=== PATIENT | female | born 1985 | race Caucasian/White ===

== ENCOUNTER 2018-10-07 17:42 | Inpatient (IN) ==
[~2018-10-07 17:42] MED LIST: *HR* Propofol 200 MG/20 ML VIAL IVP ONE; Lidocaine 2% Syringe 100 MG/5 ML IV ONE
[2018-10-07] MEDS: Naloxone 0.4 MG/ML INJ IVP ONE ×2 (17:52→18:48)
[2018-10-07] MEDS ORDERED: Naloxone 0.4 MG/ML INJ ONE (17:55)
[2018-10-07] MEDS ORDERED: Isovue-370 500 ML BOTTLE IVP ONE (17:57)
[2018-10-07] MEDS ORDERED: 0.9 % Sodium Chloride 1,000 ML ONE (18:00)
--- NOTE | 2018-10-07 18:12 | Emergency Department Note ---
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 I have personally performed a face to face evaluation on this patient & I agree with the documented findings, disposition and treatment plan as described except to the extent set forth below. Patient was seen with emergency medicine resident Dr. Rashid Bird please see copy of his note for details of this encounter Briefly: 32-year-old female on Suboxone brought in from wheelchair straight back with 13 coverage trauma 14 altered mental status. Patient said she patient's actually sit down the patient at home she appeared not acting right said he worked third shift and slept most the day this at the [facility] addicts for heroin and other substances need been clean "for years" however upon questioning the patient after she admitted she was on Suboxone she did admit to using cocaine yesterday by snorting it. Was unsure if there is any other chemicals in it. Her spouse at that she has been acting oddly since yesterday. Patient c omes in tachycardic in the 1 teens to The mid 20s hypoxic to the mid 80s that is with supplemental O2. Chest was clear she does not a 48-koxc-unby tobacco history but no formal diagnosis of COPD. Patient got 2 doses of Narcan 0.4 mg nasal mist 0.4 mg IV push with little improvement of her mental status. Patient initially her chief complaint was right foot pain that she injured it a day or so ago. Per patient who while she was spontaneously wakening and her spouse denied any history of venous thromboembolic disease in the patient or the family. Providing 75 minutes critical care service for this patient. Patient getting CT extremity chest to exclude the possibility of pulmonary embolism. Carboxyhemoglobin screening labs EKG urine drug screen. We will put the patient on BiPAP to see if he can improve her oxygenation status. And a VBG. Admission anticipated, disposition pending. Pain Scale: 0 - Related Data Home Medications Medication Instructions Recorded Confirmed Aripiprazole [Abilify] 15 mg PO DAILY 02/28/18 02/28/18 Buprenorphine HCl/Naloxone HCl 1 film PO BID 02/28/18 02/28/18 [Suboxone 8 mg-2 mg Sl Film] Medroxyprogesterone Acetate 150 mg IM [id number] 02/28/18 02/28/18 [Depo-Provera] Venlafaxine XR (24 HR) [Effexor XR] 75 mg PO DAILY 02/28/18 02/28/18 Venlafaxine XR (24 HR) [Effexor XR] 150 mg PO DAILY 02/28/18 02/28/18 Previous Rx's Medication Instructions Recorded Ibuprofen [Motrin] 800 mg PO Q8HR PRN #40 tablet 02/28/18 Allergies Allergy/AdvReac Type Severity Reaction Status Date / Time Penicillins [PCN] Allergy Rash Verified 06/14/17 09:38 Past Medical History - Past Medical History Medical history: Reports: no medical history, other Surgical history: Reports: , other Psychiatric history: Reports: anxiety, bipolar, depression, PTSD 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 - Social History Smoking Status: Former smoker Smokeless Tobacco Status: No Alcohol use: Reports: none Drug use: Reports: none Physical Exam - General Limitations: no limitations General appearance: alert, lethargic, in distress Course Vital Signs Temperature 98.7 F 10/07/18 17:53 Pulse Rate 133 10/07/18 17:53 Respiratory Rate 18 10/07/18 17:53 Blood Pressure 101/81 10/07/18 17:53 O2 Sat by Pulse Oximetry 82 10/07/18 17:53 Temperature 98.7 F 10/07/18 17:53 Pulse Rate 129 10/07/18 18:01 Respiratory Rate 20 10/07/18 18:01 Blood Pressure 101/81 10/07/18 17:53 O2 Sat by Pulse Oximetry 82 10/07/18 18:01 Oxygen Delivery Oxygen Delivery Non Rebreather Mask
[2018-10-07] MEDS ORDERED: 0.9 % Sodium Chloride 1,000 ML IVC ONE ×2 (18:20→20:07)
[2018-10-07 18:21] LABS: VBG HCO3 17 mEq/L (21-27); VBG PCO2 35 mmHg (41-51); VBG PO2 49 mmHg (25-50)
[2018-10-07 18:26] LABS: Basophils # 0.1 K/mcL (0.0-0.2); Basophils % 0.3 %; Eosinophils # 0.2 K/mcL (0.0-0.6); Eosinophils % 0.9 %; Hematocrit 40.6 % (35.3-44.9); Hemoglobin 13.5 g/dL (11.5-15.4); Immature Granulocytes % 0.9 % (0-4); Lymphocytes # 2.9 K/mcL (0.6-4.6); Lymphocytes % 14.8 %; Mean Corpuscular HGB Conc 33.3 g/dL (31.6-35.5); Mean Corpuscular Hemoglobin 28.6 pg (28.0-33.3); Mean Platelet Volume 11.4 fL (9.4-12.4); Monocytes # 0.5 K/mcL (0.0-1.3); Monocytes % 2.6 %; Neutrophils # 15.5 K/mcL (1.6-8.9); Platelet Count 241 K/mcL (140-400); Red Blood Count 4.72 M/mcL (3.82-4.97); Segmented Neutrophils % 80.5 %
[2018-10-07] MEDS ORDERED: NALOXONE 4 MG Nasal Spray 2 Sprays/Box NS ONE (18:30)
[2018-10-07 18:49] LABS: BUN/Creatinine Ratio 23 (6-26); Blood Urea Nitrogen 23 mg/dL (6-20); Calcium 9.5 mg/dL (8.6-10.3); Carbon Dioxide 15 mEq/L (23-29); Chloride 103 mEq/L (98-107); Glucose 145 mg/dL (70-105); Osmolality,Calculated 284 (280-300); Potassium 3.1 mEq/L (3.5-5.1); Sodium 134 mEq/L (136-145); Troponin I 0.03 ng/mL (< 0.04); eGFR For Non-African Americans > 60 (> 60)
[2018-10-07] MEDS ORDERED: Cefepime HCl 2,000 MG in 0.9 % Sodium Chloride Mini Bag 100 ML IVPB STA (18:52)
[2018-10-07] MEDS ORDERED: Levofloxacin 750 MG/150 ML 750 MG/150 ML BAG IVPB ONE (18:52)
[2018-10-07] MEDS ORDERED: methylPREDNISolone 125 MG/2 ML VIAL IVP ONE (18:53)
[2018-10-07] MEDS ORDERED: Ipratropium/Albuterol Neb 3 ML IH ONE (18:53)
[2018-10-07 18:55] LABS: VBG HCO3 20 mEq/L (21-27); VBG PCO2 37 mmHg (41-51); VBG PH 7.34 pH Units (7.32-7.42); VBG PO2 138 mmHg (25-50)
--- NOTE | 2018-10-07 18:56 | Emergency Department Note ---
Disposition Clinical Impression: Hypoxia, Adult respiratory distress syndrome Altered mental status Qualifiers: Altered mental status type: disorientation Qualified Code(s): R41.0 - Disorientation, unspecified Disposition: Admitted As Inpatient Condition: Critical Referrals: NONE,PCP [Primary Care Provider] - General Adult HPI - General Chief complaint: ED Shortness of Breath/Dyspnea Stated complaint: R foot pain Time Seen by Provider: 10/07/18 17:56 Source: patient Limitations: no limitations - History of Present Illness Pain Scale: 0 - Related Data Home Medications Medication Instructions Recorded Confirmed Buprenorphine HCl/Naloxone HCl 1 film PO BID 02/28/18 10/07/18 [Suboxone 8 mg-2 mg Sl Film] Venlafaxine XR (24 HR) [Effexor XR] 75 mg PO DAILY 02/28/18 10/07/18 Venlafaxine XR (24 HR) [Effexor XR] 150 mg PO DAILY 02/28/18 10/07/18 Acyclovir [Zovirax] 400 mg PO BID 10/07/18 10/07/18 Aripiprazole [Abilify] 20 mg PO DAILY 10/07/18 10/07/18 Naproxen [Naprosyn] 500 mg PO Q12H PRN 10/07/18 10/07/18 Sulfamethoxazole/Trimeth DS 1 each PO BID 10/07/18 10/07/18 [Bactrim DS] Allergies Allergy/AdvReac Type Severity Reaction Status Date / Time Penicillins [PCN] Allergy Rash Verified 06/14/17 09:38 Past Medical History - Past Medical History Medical history: Reports: no medical history, other Surgical history: Reports: , other Psychiatric history: Reports: anxiety, bipolar, depression, PTSD 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 Contreras and Dr. Bird. Patient with a history of previous IV drug abuse. Reports most recent use of cocaine. Presented to the emergency department for foot pain. Patient was found to be hypoxic in the 80s. No reported shortness of breath. Placed on nonrebreather. Placed on BiPAP. CT of the chest ordered concerning for pulmonary edema and multifocal pneumonia. Blood cultures and antibiotics have been ordered. The patient is going to receive breathing treatments and steroids. Patient will continue to be monitored and admitted to the ICU. Overall patient's lactate came back at 6.3. I have her ordered further fluids. She will need a repeat lactate. She is going to the ICU for further monitoring. During my evaluation she did appear to have some altered mental status which can best be described as slowness with her responses. She does know her name. She knows who is in the room. She knows the year. She knows she is in the hospital. She is able to move all 4 extremities without any focal deficit. Her right ankle has reported tenderness but no significant pathology. Is not erythematous. Her calf is not swollen. CTA was negative for PE. Overall the patient's story leads to significant questions. She has been covered with broad-spectrum antibiotics. Blood cultures have been obtained. Patient has received duo nebs as well as steroids. The patient was admitted to the hospital service by Dr. Bird. Blood pressures have remained above 100 systolic. No need for central line at this time. Patient will need continued close monitoring. Patient was noted to have significant elevated PO2 on VBG. This does not correlate to the patient's pulse ox. Concern for our does well as possible other underlying pathology. Due to overall concern, I discussed with the ICU physician, pulmonology, Dr. Gale. Requests respiratory infectious panel but no other interventions other than close monitoring. CAT scan of the head was ordered and negative for acute pathology. Vital Signs Temperature 98.7 F 10/07/18 17:53 Pulse Rate 133 10/07/18 17:53 Respiratory Rate 18 10/07/18 17:53 Blood Pressure 101/81 10/07/18 17:53 O2 Sat by Pulse Oximetry 82 10/07/18 17:53 Temperature 98.7 F 10/07/18 17:53 Pulse Rate 111 10/07/18 19:38 Respiratory Rate 19 10/07/18 19:38 Blood Pressure 110/63 10/07/18 19:38 O2 Sat by Pulse Oximetry 94 10/07/18 19:38 Oxygen Delivery Oxygen Delivery Bipap Medical Decision Making - Lab Data Result diagrams: 10/07/18 17:55 10/07/18 17:55 Lab Results 10/07/18 10/07/1810/07/19 Range/Units 17:55 17:55 17:55 WBC 19.2 H (4.3-11.1) K/mcL RBC 4.72 (3.82-4.97) M/mcL Hgb 13.5 (11.5-15.4) g/dL Hct 40.6 (35.3-44.9) % MCV 86.0 (83.0-100.0) fL MCH 28.6 (28.0-33.3) pg MCHC 33.3 (31.6-35.5) g/dL RDW 13.0 (11.5-14.5) % Plt Count 241 (140-400) K/mcL MPV 11.4 (9.4-12.4) fL Immature Gran % 0.9 (0-4) % Seg Neutrophils % 80.5 % Lymphocytes % 14.8 % Monocytes % 2.6 % Eosinophils % 0.9 % Basophils % 0.3 % Neutrophils # 15.5 H (1.6-8.9) K/mcL Lymphocytes # 2.9 (0.6-4.6) K/mcL Monocytes # 0.5 (0.0-1.3) K/mcL Eosinophils # 0.2 (0.0-0.6) K/mcL Basophils # 0.1 (0.0-0.2) K/mcL VBG pH (7.32-7.42) pH Units VBG pCO2 (41-51) mmHg VBG pO2 (25-50) mmHg VBG HCO3 (21-27) mEq/L Carboxyhemoglobin 7 H (0-5) % Sodium 134 L (136-145) mEq/L Potassium 3.1 L (3.5-5.1) mEq/L Chloride 103 (98-107) mEq/L Carbon Dioxide 15 L (23-29) mEq/L BUN 23 H (6-20) mg/dL Creatinine 0.99 (0.60-1.20) mg/dL Est GFR ( Amer) > 60 (> 60) Est GFR (Non-Af Amer) > 60 (> 60) BUN/Creatinine Ratio 23 (6-26) Glucose 145 H (70-105) mg/dL Calculated Osmolality 284 (280-300) Lactic Acid (0.5-2.2) mmol/L Calcium 9.5 (8.6-10.3) mg/dL Troponin I 0.03 (< 0.04) ng/mL Serum , Qual (Negative) Urine Opiates Screen (Nnoroz=723) ng/mL Ur Barbiturates Screen (Hcxidw=983) ng/mL Ur Phencyclidine Scrn (Cutoff=25) ng/mL Ur Amphetamines Screen (Dqrosw=9131) ng/mL U Benzodiazepines Scrn (Lqxsww=089) ng/mL Urine Cocaine Screen (Cutoff= 300) ng/mL U Marijuana (THC) Screen (Cutoff = 50) ng/mL Ur Drug Screen Interp 10/07/18 10/07/18 10/07/18 Range/Units 17:55 18:18 18:24 WBC (4.3-11.1) K/mcL RBC (3.82-4.97) M/mcL Hgb (11.5-15.4) g/dL Hct (35.3-44.9) % MCV (83.0-100.0) fL MCH (28.0-33.3) pg MCHC (31.6-35.5) g/dL RDW (11.5-14.5) % Plt Count (140-400) K/mcL MPV (9.4-12.4) fL Immature Gran % (0-4) % Seg Neutrophils % % Lymphocytes % % Monocytes % % Eosinophils % % Basophils % % Neutrophils # (1.6-8.9) K/mcL Lymphocytes # (0.6-4.6) K/mcL Monocytes # (0.0-1.3) K/mcL Eosinophils # (0.0-0.6) K/mcL Basophils # (0.0-0.2) K/mcL VBG pH 7.30 L (7.32-7.42) pH Units VBG pCO2 35 L (41-51) mmHg VBG pO2 49 (25-50) mmHg VBG HCO3 17 L (21-27) mEq/L Carboxyhemoglobin (0-5) % Sodium (136-145) mEq/L Potassium (3.5-5.1) mEq/L Chloride (98-107) mEq/L Carbon Dioxide (23-29) mEq/L BUN (6-20) mg/dL Creatinine (0.60-1.20) mg/dL Est GFR ( Amer) (> 60) Est GFR (Non-Af Amer) (> 60) BUN/Creatinine Ratio (6-26) Glucose (70-105) mg/dL Calculated Osmolality (280-300) Lactic Acid 6.3 H* (0.5-2.2) mmol/L Calcium (8.6-10.3) mg/dL Troponin I (< 0.04) ng/mL Serum , Qual Negative (Negative) Urine Opiates Screen (Zbskug=664) ng/mL Ur Barbiturates Screen (Dbjfoe=808) ng/mL Ur Phencyclidine Scrn (Cutoff=25) ng/mL Ur Amphetamines Screen (Fiuvan=3500) ng/mL U Benzodiazepines Scrn (Audmws=099) ng/mL Urine Cocaine Screen (Cutoff= 300) ng/mL U Marijuana (THC) Screen (Cutoff = 50) ng/mL Ur Drug Screen Interp 10/07/18 10/07/18 Range/Units 18:50 18:51 WBC (4.3-11.1) K/mcL RBC (3.82-4.97) M/mcL Hgb (11.5-15.4) g/dL Hct (35.3-44.9) % MCV (83.0-100.0) fL MCH (28.0-33.3) pg MCHC (31.6-35.5) g/dL RDW (11.5-14.5) % Plt Count (140-400) K/mcL MPV (9.4-12.4) fL Immature Gran % (0-4) % Seg Neutrophils % % Lymphocytes % % Monocytes % % Eosinophils % % Basophils % % Neutrophils # (1.6-8.9) K/mcL Lymphocytes # (0.6-4.6) K/mcL Monocytes # (0.0-1.3) K/mcL Eosinophils # (0.0-0.6) K/mcL Basophils # (0.0-0.2) K/mcL VBG pH 7.34 (7.32-7.42) pH Units VBG pCO2 37 L (41-51) mmHg VBG pO2 138 H (25-50) mmHg VBG HCO3 20 L (21-27) mEq/L Carboxyhemoglobin (0-5) % Sodium (136-145) mEq/L Potassium (3.5-5.1) mEq/L Chloride (98-107) mEq/L Carbon Dioxide (23-29) mEq/L BUN (6-20) mg/dL Creatinine (0.60-1.20) mg/dL Est GFR ( Amer) (> 60) Est GFR (Non-Af Amer) (> 60) BUN/Creatinine Ratio (6-26) Glucose (70-105) mg/dL Calculated Osmolality (280-300) Lactic Acid (0.5-2.2) mmol/L Calcium (8.6-10.3) mg/dL Troponin I (< 0.04) ng/mL Serum , Qual (Negative) Urine Opiates Screen Negative (Rezzne=302) ng/mL Ur Barbiturates Screen Negative (Yoeepr=972) ng/mL Ur Phencyclidine Scrn Negative (Cutoff=25) ng/mL Ur Amphetamines Screen Negative (Gblmmu=6846) ng/mL U Benzodiazepines Scrn Negative (Zvbfkq=223) ng/mL Urine Cocaine Screen Positive H (Cutoff= 300) ng/mL U Marijuana (THC) Screen Negative (Cutoff = 50) ng/mL Ur Drug Screen Interp See Below
--- NOTE | 2018-10-07 19:03 | Emergency Department Note ---
Disposition Clinical Impression: Hypoxia, Adult respiratory distress syndrome Altered mental status Qualifiers: Altered mental status type: disorientation Qualified Code(s): R41.0 - Disorientation, unspecified Disposition: Admitted As Inpatient Condition: Critical Referrals: NONE,PCP [Primary Care Provider] - Forms: ED Satisfaction Letter Time of Disposition: 19:29 SOB HPI - General Chief Complaint: ED Shortness of Breath/Dyspnea Stated Complaint: R foot pain Time Seen by Provider: 10/07/18 17:56 Source: patient Mode of arrival: ambulatory Limitations: no limitations Nursing Notes Reviewed: Yes Vital Signs Reviewed: Yes - History of Present Illness 33 old female history of IV drug abuse has been clean for 2 years presents to the emergency department with right foot pain. In triage they noticed that she had oxygen saturation at 85% so they took her stay back to the trauma bay. Getting history from patient and family has been said that he was at work today but said he was sleeping and he knows that she was a little altered when he woke up saying that she Falling down Did Not Hit Her Head Did Not Lose Consciousness and Dozing off Almost like She Had Overdosed on the Medication. They do state that she states she has not taken any drugs other than snorting cocaine last night but is done no other drugs otherwise. Patient is currently on Suboxone has been taking her medications. She also contain her psychiatric medications which include venlafaxine and Abilify. Patient states that she has had a mild cough and not felt well for approximately a month but there has been no shortness of breath or fevers that she notes any time during this period patient does not know any pain other than in the right foot where she says she feels like she may have broken something. She is not sure when this happened or if there is any trauma to the area. There is no redness or open wounds to the area. There is no noticeable deformities. Otherwise patient has no other complaints including fevers, chills, nausea, vomiting, headache, blurry vision, neck pain, back pain, shortness of breath, chest pain, abdominal pain, changes in balance, pain with urination. Tingling going down the arms or legs or generalized weakness. - Related Data Home Medications Medication Instructions Recorded Confirmed Aripiprazole [Abilify] 15 mg PO DAILY 02/28/18 02/28/18 Buprenorphine HCl/Naloxone HCl 1 film PO BID 02/28/18 02/28/18 [Suboxone 8 mg-2 mg Sl Film] Medroxyprogesterone Acetate 150 mg IM [id number] 02/28/18 02/28/18 [Depo-Provera] Venlafaxine XR (24 HR) [Effexor XR] 75 mg PO DAILY 02/28/18 02/28/18 Venlafaxine XR (24 HR) [Effexor XR] 150 mg PO DAILY 02/28/18 02/28/18 Previous Rx's Medication Instructions Recorded Ibuprofen [Motrin] 800 mg PO Q8HR PRN #40 tablet 02/28/18 Allergies Allergy/AdvReac Type Severity Reaction Status Date / Time Penicillins [PCN] Allergy Rash Verified 06/14/17 09:38 All systems ED: reviewed and negative except as stated. Review of Systems: As Per HPI Past Medical History - Past Medical History Attestation: Yes The following information was validated with the patient. Source: patient Medical history: Reports: no medical history, other Surgical history: Reports: , other Psychiatric history: Reports: anxiety, bipolar, depression, PTSD [employer] history: Reports: non-contributory - Social History Smoking Status: Former smoker Smokeless Tobacco Status: No Alcohol use: Reports: none Drug use: Reports: none Physical Exam - General Limitations: no limitations General appearance: alert, lethargic, in distress - Head Head exam: atraumatic, normocephalic, normal inspection - Eye Eye exam: Present: normal appearance, PERRL, EOMI - ENT ENT exam: normal exam, normal oropharynx, mucous membranes moist - Neck Neck exam: Present: normal inspection, full ROM, trachea midline - Chest Chest inspection: Present: normal inspection, symmetric chest wall rise - Respiratory Respiratory exam: Present: accessory muscle use. Absent: respiratory distress, wheezes, prolonged expiratory phase - Cardiovascular Cardiovascular exam: Present: regular rate, normal rhythm, normal heart sounds - Abdominal Exam Abdominal exam: Present: soft, Non-Tender, normal bowel sounds. Absent: tenderness, distention, guarding, rebound, rigidity - Extremities Exam Extremities exam: Present: normal inspection, full ROM. Absent: tenderness, pedal edema - Expanded Lower Extremity Exam Knee exam: Present: normal inspection, full ROM Lower leg exam: Present: normal inspection, full ROM Ankle exam: Present: normal inspection, full ROM Foot/toe exam: Present: normal inspection, full ROM, tenderness (Tenderness while palpating the right foot no noticeable swelling noticeable deformities no noticeable erythema. Tenderness is located in the medial portion of the foot) Neurovascular/Tendon exam: Present: normal capillary refill. Absent: pulse deficit, motor deficit, sensory deficit, tendon deficit - Back Exam Back exam: Present: normal inspection, full ROM. Absent: tenderness - Neurological Exam Neurological exam: Present: alert, oriented X3 - Skin Skin exam: Present: warm, dry, intact, normal color Course Vital Signs Temperature 98.7 F 10/07/18 17:53 Pulse Rate 133 10/07/18 17:53 Respiratory Rate 18 10/07/18 17:53 Blood Pressure 101/81 10/07/18 17:53 O2 Sat by Pulse Oximetry 82 10/07/18 17:53 Temperature 98.7 F 10/07/18 17:53 Pulse Rate 111 10/07/18 18:55 Respiratory Rate 15 10/07/18 18:55 Blood Pressure 97/71 10/07/18 18:55 O2 Sat by Pulse Oximetry 92 10/07/18 18:55 Oxygen Delivery Oxygen Delivery Bipap Shortness of Breath/Dyspnea - MDM Narrative Medical decision making narrative: When patient presented to the emergency department she really taken back to the trauma bay in the alert team was called. Patient was 82% while on a nonrebreather breathing comfortably. While in the lungs there did not seem to be any Rales or rhonchi or wheezes. Patient did not sustain to be in distress and was alert and oriented 3 when I evaluated her. Patient did admit to using cocaine to me otherwise to not use any medications. We did give her 2 mg intranasal Narcan prior to hearing that she takes Suboxone. This did not make any difference for her. Due to patient still being hypoxic while being on nonrebreather we felt felt that pulmonary embolism was a definite concern and do the altered mental status we decided was emergent so we sent patient over to CT for an angiogram of the chest. This was done and seems to show bilateral extensive pulmonary edema with possible pneumonia does seem to fit in ARDS picture. Due to patient still being hypoxic. Did place her on BiPAP she has responded well to this is now her oxygen saturations anywhere from 92-94%. Blood pressure is been stable the entire time. Patient has not had a fever here she is mildly tachycardic. We will give patient DuoNeb's as well as Solu- Medrol. We will also start her on broad-spectrum antibiotics including cefepime, vancomycin, Levaquin. There was no pulmonary embolus seen on CT. There are mildly for abnormalities which can be fixed when patient is admitted to the floor. I feel patient needs ICU admission as patient does seem that due to the arts picture may need intubation in the near future. At this time she is protecting her airway breathing well and doing well on BiPAP I do not think she needs intubated at this point in her emergency department stay. Spoke with the hospitalist Dr. Lloyd who agreed to admit the patient to their service. Patient admitted in critical condition to the ICU. As for the foot pain there is no noticeable trauma to the area x-ray did show possible fracture this can be worked on once patient becomes less critical in her pulmonary status. CT can be ordered later for that. No further treatment or imaging needed at this time for the foot this can be addressed later in her hospital stay. Chest CTA 10/07/18 17:57 IMPRESSION: Negative for pulmonary embolus. Extensive bilateral pulmonary edema and/or superimposed pneumonia. D/ / Shabbir Oneal MD / Shabbir Oneal MD Interpreting Provider: Shabbir Oneal MD Foot X-Ray 10/07/18 18:04 IMPRESSION: No acute osseous abnormality right foot. Focal calcification is noted along the inferior margin of the right fibula with adjacent soft tissue edema possibly related to subacute avulsion fracture (? Sprain) or sequela from remote trauma. Correlate with history and physical findings. Dedicated right ankle series may be indicated. Follow-up imaging recommended if pain persists or worsens following conservative management. D/ / Yoandy Bishop / Yoandy Bishop Interpreting Provider: Yoandy Bishop - Medical Records Medical records reviewed: Yes I reviewed the patient's medical records. - Lab Data Lab results reviewed: Yes I reviewed the patient's lab results. Result diagrams: 10/07/18 17:55 10/07/18 17:55 Lab Results 10/07/18 10/07/18 10/07/18 Range/Units 17:55 17:55 17:55 WBC 19.2 H (4.3-11.1) K/mcL RBC 4.72 (3.82-4.97) M/mcL Hgb 13.5 (11.5-15.4) g/dL Hct 40.6 (35.3-44.9) % MCV 86.0 (83.0-100.0) fL MCH 28.6 (28.0-33.3) pg MCHC 33.3 (31.6-35.5) g/dL RDW 13.0 (11.5-14.5) % Plt Count 241 (140-400) K/mcL MPV 11.4 (9.4-12.4) fL Immature Gran % 0.9 (0-4) % Seg Neutrophils % 80.5 % Lymphocytes % 14.8 % Monocytes % 2.6 % Eosinophils % 0.9 % Basophils % 0.3 % Neutrophils # 15.5 H (1.6-8.9) K/mcL Lymphocytes # 2.9 (0.6-4.6) K/mcL Monocytes # 0.5 (0.0-1.3) K/mcL Eosinophils # 0.2 (0.0-0.6) K/mcL Basophils # 0.1 (0.0-0.2) K/mcL VBG pH (7.32-7.42) pH Units VBG pCO2 (41-51) mmHg VBG pO2 (25-50) mmHg VBG HCO3 (21-27) mEq/L Carboxyhemoglobin 7 H (0-5) % Sodium 134 L (136-145) mEq/L Potassium 3.1 L (3.5-5.1) mEq/L Chloride 103 (98-107) mEq/L Carbon Dioxide 15 L (23-29) mEq/L BUN 23 H (6-20) mg/dL Creatinine 0.99 (0.60-1.20) mg/dL Est GFR ( Amer) > 60 (> 60) Est GFR (Non-Af Amer) > 60 (> 60) BUN/Creatinine Ratio 23 (6-26) Glucose 145 H (70-105) mg/dL Calculated Osmolality 284 (280-300) Calcium 9.5 (8.6-10.3) mg/dL Troponin I 0.03 (< 0.04) ng/mL Serum , Qual (Negative) Urine Opiates Screen (Bckoqh=974) ng/mL Ur Barbiturates Screen (Zihdty=180) ng/mL Ur Phencyclidine Scrn (Cutoff=25) ng/mL Ur Amphetamines Screen (Cnyyjj=0359) ng/mL U Benzodiazepines Scrn (Fyvrro=039) ng/mL Urine Cocaine Screen (Cutoff= 300) ng/mL U Marijuana (THC) Screen (Cutoff = 50) ng/mL Ur Drug Screen Interp 10/07/18 10/07/18 10/07/18 Range/Units 18:18 18:24 18:50 WBC (4.3-11.1) K/mcL RBC (3.82-4.97) M/mcL Hgb (11.5-15.4) g/dL Hct (35.3-44.9) % MCV (83.0-100.0) fL MCH (28.0-33.3) pg MCHC (31.6-35.5) g/dL RDW (11.5-14.5) % Plt Count (140-400) K/mcL MPV (9.4-12.4) fL Immature Gran % (0-4) % Seg Neutrophils % % Lymphocytes % % Monocytes % % Eosinophils % % Basophils % % Neutrophils # (1.6-8.9) K/mcL Lymphocytes # (0.6-4.6) K/mcL Monocytes # (0.0-1.3) K/mcL Eosinophils # (0.0-0.6) K/mcL Basophils # (0.0-0.2) K/mcL VBG pH 7.30 L (7.32-7.42) pH Units VBG pCO2 35 L (41-51) mmHg VBG pO2 49 (25-50) mmHg VBG HCO3 17 L (21-27) mEq/L Carboxyhemoglobin (0-5) % Sodium (136-145) mEq/L Potassium (3.5-5.1) mEq/L Chloride (98-107) mEq/L Carbon Dioxide (23-29) mEq/L BUN (6-20) mg/dL Creatinine (0.60-1.20) mg/dL Est GFR ( Amer) (> 60) Est GFR (Non-Af Amer) (> 60) BUN/Creatinine Ratio (6-26) Glucose (70-105) mg/dL Calculated Osmolality (280-300) Calcium (8.6-10.3) mg/dL Troponin I (< 0.04) ng/mL Serum , Qual Negative (Negative) Urine Opiates Screen Negative (Nsucie=817) ng/mL Ur Barbiturates Screen Negative (Lfildx=474) ng/mL Ur Phencyclidine Scrn Negative (Cutoff=25) ng/mL Ur Amphetamines Screen Negative (Tsoptn=2827) ng/mL U Benzodiazepines Scrn Negative (Umkttl=254) ng/mL Urine Cocaine Screen Positive H (Cutoff= 300) ng/mL U Marijuana (THC) Screen Negative (Cutoff = 50) ng/mL Ur Drug Screen Interp See Below 10/07/18 Range/Units 18:51 WBC (4.3-11.1) K/mcL RBC (3.82-4.97) M/mcL Hgb (11.5-15.4) g/dL Hct (35.3-44.9) % MCV (83.0-100.0) fL MCH (28.0-33.3) pg MCHC (31.6-35.5) g/dL RDW (11.5-14.5) % Plt Count (140-400) K/mcL MPV (9.4-12.4) fL Immature Gran % (0-4) % Seg Neutrophils % % Lymphocytes % % Monocytes % % Eosinophils % % Basophils % % Neutrophils # (1.6-8.9) K/mcL Lymphocytes # (0.6-4.6) K/mcL Monocytes # (0.0-1.3) K/mcL Eosinophils # (0.0-0.6) K/mcL Basophils # (0.0-0.2) K/mcL VBG pH 7.34 (7.32-7.42) pH Units VBG pCO2 37 L (41-51) mmHg VBG pO2 138 H (25-50) mmHg VBG HCO3 20 L (21-27) mEq/L Carboxyhemoglobin (0-5) % Sodium (136-145) mEq/L Potassium (3.5-5.1) mEq/L Chloride (98-107) mEq/L Carbon Dioxide (23-29) mEq/L BUN (6-20) mg/dL Creatinine (0.60-1.20) mg/dL Est GFR ( Amer) (> 60) Est GFR (Non-Af Amer) (> 60) BUN/Creatinine Ratio (6-26) Glucose (70-105) mg/dL Calculated Osmolality (280-300) Calcium (8.6-10.3) mg/dL Troponin I (< 0.04) ng/mL Serum , Qual (Negative) Urine Opiates Screen (Qxusvr=252) ng/mL Ur Barbiturates Screen (Jcxztm=180) ng/mL Ur Phencyclidine Scrn (Cutoff=25) ng/mL Ur Amphetamines Screen (Uawhwf=2551) ng/mL U Benzodiazepines Scrn (Hqnoxb=553) ng/mL Urine Cocaine Screen (Cutoff= 300) ng/mL U Marijuana (THC) Screen (Cutoff = 50) ng/mL Ur Drug Screen Interp - Radiology Data Radiology results reviewed: Yes I reviewed the patient's radiology results. - EKG Data EKG attestation: Yes I reviewed and interpreted this EKG. EKG results narrative: EKG done at 1801 review myself and the attending shows sinus tachycardia rate of 128, NH 147, QRS 69, QTC 454. There is no acute ST changes no acute T-wave changes no other signs of ischemia perhypertrophy, heart and, heart block. No WPW/Brugada/HOCM. No old EKG to compare with.
[2018-10-07 19:14] LABS: Amphetamine Screen,Urine Negative ng/mL (Cutoff=1000); Barbiturate Screen,Urine Negative ng/mL (Cutoff=200); Benzodiazepines Screen,Urine Negative ng/mL (Cutoff=200); Cannabinoid Screen,Urine Negative ng/mL (Cutoff = 50); Cocaine Screen,Urine Positive ng/mL (Cutoff= 300); Opiate Screen,Urine Negative ng/mL (Cutoff=300); Phencyclidine Screen,Urine Negative ng/mL (Cutoff=25)
--- NOTE | 2018-10-07 19:42 | Internal Med History&Physical ---
<Rajwinder Fuentes N - Last Filed: 10/07/18 22:58> Date of Encounter: 10/07/18 Time of Encounter: 19:42 Internal Medicine - H&P: HPI Chief complaint: Shortness of breath Admitted From: Emergency Dept History of present illness: Ms. Swanson is a 33 year old female with a history of anxiety, bipolar disorder, PTSD, depression, IV drug abuse, and hepatitis C. She presented to the ED this evening due to right ankle/foot pain; however, she was found to have a pulse oximetry of 85% in triage, and was immediately brought back to the trauma bay. She was administered 2 mg intranasal Narcan due to being on Suboxone therapy; however, this did not appear to improve her respiratory status. Patient did admit to snorting cocaine last night, and also admits to snorting Lyrica intermittently. CTA of the chest was negative for pulmonary embolus, though extensive bilateral pulmonary edema and/or superimposed pneumonia was noted. Patient was also noted to have an elevated white blood cell count at 19.2. She was started on BiPAP in the ED, with improvement in oxygen saturation. She was started on broad-spectrum antibiotic therapy with cefepime, Levaquin, and vancomycin and admitted to the ICU for management of hypoxia/adult respiratory d istress syndrome. Patient was seen and evaluated the bedside both while in the ED and immediately after arrival to the ICU. She reports no recent illnesses, or any sick contacts. 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 She denies any fevers, chills, cough, or sputum production. She denies any recent travel or exposure to new environments. She does not have pets, including birds, in the home. She does admit to "snorting" a line of cocaine while at work last night. S he also admits to occasional recreational use of Lyrica, which she has taken both orally and intranasally; however, saw reports that she has been inhaling Lyrica at least once per day for the last couple of weeks. She denies any other drug use, and states that she takes all of her medications as prescribed. She is currently a 1PPD smoker, and denies any alcohol use. Past Med Surg Social Fam HX - Past Medical History Medical history: no medical history, other Additional medical history: Hepatitis C, HX opiate abuse Psychiatric history: anxiety, bipolar, depression, PTSD - Past Surgical History Surgical History: , other Additional surgical history: tubal - Social History Smoking Status: Former smoker Smokeless Tobacco Status: No Alcohol use: none Drug use: none Internal Medicine - H&P: Meds Buprenorphine HCl/Naloxone HCl [Suboxone 8 mg-2 mg Sl Film] 1 film PO BID 02/28/18 [History] Venlafaxine XR (24 HR) [Effexor XR] 75 mg PO DAILY 02/28/18 [History] Venlafaxine XR (24 HR) [Effexor XR] 150 mg PO DAILY 02/28/18 [History] Acyclovir [Zovirax] 400 mg PO BID 10/07/18 [History] Aripiprazole [Abilify] 20 mg PO DAILY 10/07/18 [History] Naproxen [Naprosyn] 500 mg PO Q12H PRN 10/07/18 [History] Sulfamethoxazole/Trimeth DS [Bactrim DS] 1 each PO BID 10/07/18 [History] Allergy/AdvReac Type Severity Reaction Status Date / Time Penicillins [PCN] Allergy Rash Verified 06/14/17 09:38 All Systems PM: A 10-system review of systems was performed and is negative for pertinent find ings except as documented above in the HPI. - Constitutional Constitutional: no chills, no fever(s) - Cardiovascular Cardiovascular ROS IM: chest pain, no diaphoresis, no dyspnea, no lightheadedness, no palpitations, no syncope - Respiratory Respiratory: dyspnea, no cough, no wheezing, no chest congestion, no excessive phlegm production, no pain with cough - Gastrointestinal Gastrointestinal: no abdominal pain, no diarrhea, no hematemesis, no hematochezia, no melena, no nausea, no vomiting - Neurological Neurological ROS: confusion, weakness, other (somnolence) - Constitutional Vitals: Temp Pulse Resp BP Pulse Ox 98.7 F 111 19 110/63 94 10/07/18 17:53 10/07/18 19:38 10/07/18 19:38 10/07/18 19:38 10/07/18 19:38 Exam: GENERAL: Well-developed well-nourished adult female in no acute distress. HEENT: Atraumatic and normocephalic. BiPAP mask in place. CARDIOVASCULAR: Regular rate and rhythm. S1 and S2 present. No murmurs, gallops, or rubs. RESPIRATORY: Clear to auscultation bilaterally. Chest rises and falls symmetrically with respiration. No accessory muscle use noted. GASTROINTESTINAL: Abdomen is soft, nontender, nondistended. Bowel sounds present 4 quadrants. EXTREMITIES: No clubbing, cyanosis, or edema present. Patient reports tenderness to palpation near right ankle. SKIN: Warm, dry, and intact. NEUROLOGIC: Alert and oriented x3. Patient is cooperative with exam and answers questions appropriately. No apparent focal deficits. PSYCHIATRIC: Mood and affect appear appropriate. Internal Med - H&P Results - Labs CBC & Chem 7: 10/07/18 17:55 10/07/18 17:55 Labs: Short CBC 10/07/18 Range/Units 17:55 WBC 19.2 H (4.3-11.1) K/mcL Hgb 13.5 (11.5-15.4) g/dL Hct 40.6 (35.3-44.9) % Plt Count 241 (140-400) K/mcL Neutrophils # 15.5 H (1.6-8.9) K/mcL BMP 10/07/18 17:55 Sodium 134 L Potassium 3.1 L Chloride 103 Carbon Dioxide 15 L BUN 23 H Creatinine 0.99 Glucose 145 H Calcium 9.5 Cardiac Enzymes 10/07/18 Range/Units 17:55 Troponin I 0.03 (< 0.04) ng/mL - ABG Interpretation ABG results: 10/07/18 10/07/18 18:18 18:51 VBG pH 7.30 L 7.34 VBG pCO2 35 L 37 L VBG pO2 49 138 H VBG HCO3 17 L 20 L - Impressions ITS Impressions Chest CTA 10/07/18 17:57 IMPRESSION: Negative for pulmonary embolus. Extensive bilateral pulmonary edema and/or superimposed pneumonia. D/ / Shabbir Oneal MD / Shabbir Oneal MD Interpreting Provider: Shabbir Oneal MD Foot X-Ray 10/07/18 18:04 IMPRESSION: No acute osseous abnormality right foot. Focal calcification is noted along the inferior margin of the right fibula with adjacent soft tissue edema possibly related to subacute avulsion fracture (? Sprain) or sequela from remote trauma. Correlate with history and physical findings. Dedicated right ankle series may be indicated. Follow-up imaging recommended if pain persists or worsens following conservative management. D/ / Yoandy Bishop / Yoandy Bishop Interpreting Provider: Yoandy Bishop - Assessment and Plan (1) Adult respiratory distress syndrome Current Visit: Yes Status: Acute Assessment and plan: Unclear etiology, but concern for chemical pneumonitis secondary to frequent inhalation of recreational drugs. Additionally, high concern for concomitant bilateral pneumonia based on abnormal CTA findings. - Continue BiPAP therapy with adjustments to maintain appropriate oxygen satu ration. Anticipate intubation if patient begins to desaturate or show signs of distress. - Continue broad-spectrum antibiotic therapy with vancomycin, cefepime, and Levaquin. Anticipate deescalation of antibiotics pending culture results. - Respiratory infectious panel, urine legionella/strep pneumo antigens, and MRSA nasal swab pending. - Will obtain CXR in AM to compare with initial CT. (2) Bilateral pneumonia Current Visit: Yes Status: Acute Assessment and plan: Uncertain microbiology. CTA of the chest demonstrated extensive groundglass opacification throughout each lung, as well as enlarged 2.5 cm right hilar lymph node and 2 cm azygos esophageal recess noted, with concern for extensive bilateral pulmonary edema and/or superimposed pneumonia. - Contine broad-spectrum antibiotic therapy as initiated in the ED with cefepime, levaquin, and vancomycin. - Urine antigens, respiratory infectious panel, and sputum culture pending. - Further plan as above. Qualifiers: Pneumonia type: due to unspecified organism Lung location: unspecified part of lung Qualified Code(s): J18.9 - Pneumonia, unspecified organism (3) Current recreational drug use Current Visit: Yes Status: Acute Assessment and plan: UDS positive for cocaine, which patient admits to using last night. She also reports a history of heroin abuse, for which she takes Suboxone 8/2mg BID, and recreational use of Lyrica. - 2mg Narcan administered in ED. - Hold Suboxone at this time due to acute respiratory problems; anticipate restarting that medication over the next few days. (4) Tobacco abuse Current Visit: Yes Status: Chronic (5) DVT prophylaxis Current Visit: Yes Status: Acute Assessment and plan: - Heparin 5000units SQ Q8H. (6) Severe sepsis Current Visit: Yes Status: Acute Assessment and plan: Suspect secondary to pneumonia. Met sepsis criteria at the time of admission with tachycardia with HR 133, WBC 9.2, lactic acid 6.3, and suspected pneumonia. - Repeat and trend lactic acid Q6H. - Continue broad-spectrum IV antibiotics with cefepime, levaquin, and vancomycin. - Nasal MRSA swab and urine antigens pending. Respiratory infectious panel and blood cultures pending. - Urinalysis with reflex culture pending. - Continue IVF hydration with 0.9%NaCl at 200mL/hour. - Repeat and trend CBC with AM laboratory studies. - Time Spent With Patient Total time spent is greater than 50% in coordination of care (as documented) at patient's floor/unit and/or counseling patient: <Randee Barros - Last Filed: 10/08/18 06:38> Date of Encounter: 10/07/18 Internal Medicine - H&P: HPI History of present illness: Ms. Swanson is a 33 year old female All Systems PM: A 10-system review of systems was performed and is negative for pertinent fin dings except as documented above in the HPI. - Constitutional Vitals: Temp Pulse Resp BP Pulse Ox 97.9 F 79 20 92/67 97 10/08/18 04:00 10/08/18 06:00 10/08/18 06:00 10/08/18 06:00 10/08/18 06:00 Internal Med - H&P Results - Labs CBC & Chem 7: 10/08/18 03:27 10/08/18 03:27 Labs: Short CBC 10/07/18 10/08/18 Range/Units 17:55 03:27 WBC 19.2 H 9.6 (4.3-11.1) K/mcL Hgb 13.5 11.6 D (11.5-15.4) g/dL Hct 40.6 35.4 (35.3-44.9) % Plt Count 241 153 (140-400) K/mcL Neutrophils # 15.5 H 8.6 (1.6-8.9) K/mcL BMP 10/07/18 10/08/18 17:55 03:27 Sodium 134 L 135 L Potassium 3.1 L 4.8 D Chloride 103 111 H Carbon Dioxide 15 L 21 L BUN 23 H 16 Creatinine 0.99 0.62 Glucose 145 H 144 H Calcium 9.5 8.2 L Cardiac Enzymes 10/07/18 Range/Units 17:55 Troponin I 0.03 (< 0.04) ng/mL Liver Function 10/07/18 Range/Units 21:34 Total Bilirubin 0.3 (0.3-1.0) mg/dL Direct Bilirubin 0.1 (0.0-0.2) mg/dL AST 71 H (13-39) Units/L ALT 23 (7-52) Units/L Alkaline Phosphatase 119 H (34-104) Units/L Albumin 3.1 L (3.5-5.7) g/dL Urine 10/07/18 Range/Units 22:26 Urine Color Yellow (Yellow) Urine Clarity Clear (Clear) Urine pH 6.0 (5.0-8.0) pH Units Ur Specific [place] > 1.030 H (1.010-1.025) Urine Protein Trace (Neg-Trace) mg/dL Urine Glucose (UA) Normal (Normal) mg/dL - ABG Interpretation ABG results: 10/07/18 10/07/18 10/07/18 18:18 18:51 21:03 ABG pH 7.36 ABG pCO2 37 ABG pO2 83 L ABG HCO3 21 ABG Total CO2 22 ABG O2 Saturation 96 ABG Base Excess -4 L VBG pH 7.30 L 7.34 VBG pCO2 35 L 37 L VBG pO2 49 138 H VBG HCO3 17 L 20 L 10/08/18 04:33 ABG pH 7.29 L ABG pCO2 43 ABG pO2 92 ABG HCO3 21 ABG Total CO2 22 ABG O2 Saturation 96 ABG Base Excess -6 L VBG pH VBG pCO2 VBG pO2 VBG HCO3 - Impressions ITS Impressions Chest CTA 10/07/18 17:57 IMPRESSION: Negative for pulmonary embolus. Extensive bilateral pulmonary edema and/or superimposed pneumonia. D/ / Shabbir Oneal MD / Shabbir Oneal MD Interpreting Provider: Shabbir Oneal MD Foot X-Ray 10/07/18 18:04 IMPRESSION: No acute osseous abnormality right foot. Focal calcification is noted along the inferior margin of the right fibula with adjacent soft tissue edema possibly related to subacute avulsion fracture (? Sprain) or sequela from remote trauma. Correlate with history and physical findings. Dedicated right ankle series may be indicated. Follow-up imaging recommended if pain persists or worsens following conservative management. D/ / Yoandy Bishop / Yoandy Bishop Interpreting Provider: Yoandy Bishop Head CT 10/07/18 19:35 IMPRESSION: No acute intracranial abnormality. D/ / Shabbir Oneal MD / Shabbir Oneal MD Interpreting Provider: Shabbir Oneal MD Ankle X-Ray 10/08/18 19:25 IMPRESSION: No acute abnormality of the ankle. D/ / Shabbir Oneal MD / Shabbir Oneal MD Interpreting Provider: Shabbir Oneal MD - Assessment and Plan (1) Adult respiratory distress syndrome Current Visit: Yes Status: Acute (2) Tobacco abuse Current Visit: Yes Status: Chronic (3) Bilateral pneumonia Current Visit: Yes Status: Acute Qualifiers: Pneumonia type: due to unspecified organism Lung location: unspecified part of lung Qualified Code(s): J18.9 - Pneumonia, unspecified organism (4) Current recreational drug use Current Visit: Yes Status: Acute (5) DVT prophylaxis Current Visit: Yes Status: Acute (6) Severe sepsis Current Visit: Yes Status: Acute - Time Spent With Patient Total time spent is greater than 50% in coordination of care (as documented) at patient's floor/unit and/or counseling patient: - Attending Attestation I performed a history and physical examination of the patient and discussed her management with the resident. I reviewed the residents note and agree with the assessment and plan. Patient is 33 y/o female with a PMH of drug abuse who presented to the ED with c/o right foot pain. Patient was found to be hypoxic in the 80s. No reported shortness of breath. Placed on nonrebreather without improvement and transitioned to BiPAP. CT of the chest demonstrated ground glass opacities from the apex to the bases bilaterally. Patient subsequently endorsed recent coacaine use and snorting lyrica. Suspect chemical pneumonitis. ABG: pH 7.36, PCO2 37, PO2 83, HCO2 21 on 80% FIO2. Recieved broad spectrum Abx as well as steroids. Patient mentating well. Not in respiratory distress. Case discussed with Dr. Nelson who will follow in the morning. 45 minutes of critical care time spent in the management of this patient.
[2018-10-07] MEDS ORDERED: Naloxone 0.4 MG/ML INJ IVP PRN (19:49)
[2018-10-07 21:07] LABS: ABG Base Excess -4 mEq/L (-2 to 3); ABG HCO3 21 mEq/L (21-27); ABG Oxygen Saturation 96 % (95-98); ABG PCO2 37 mmHg (35-45); ABG PH 7.36 pH Units (7.32-7.45); ABG PO2 83 mmHg (85-104); ABG TCO2 22 mEq/L (20-26); Blood Gas PEEP 8 cm H2O; Blood Gas Respiration Rate 10
[2018-10-07] MEDS: 0.9 % Sodium Chloride 1,000 ML IVC SCH (21:51)
[2018-10-07 22:03] LABS: Albumin 3.1 g/dL (3.5-5.7); Bilirubin,Direct 0.1 mg/dL (0.0-0.2); Bilirubin,Indirect 0.2 mg/dL (0.0-1.2); Bilirubin,Total 0.3 mg/dL (0.3-1.0); Globulin 3.1 g/dL (2.4-3.5); Magnesium 2.1 mg/dL (1.6-2.6); Total Protein 6.2 g/dL (6.4-8.9)
[2018-10-07 22:54] LABS: Bilirubin,Urine Negative (Negative); Blood,Urine Negative (Negative); Clarity,Urine Clear (Clear); Color,Urine Yellow (Yellow); Glucose,Urine (UA) Normal (Normal); Ketones,Urine Trace mg/dL (Negative); Leukocyte Esterase,Urine Negative (Negative); Nitrite,Urine Negative (Negative); Protein,Urine Trace mg/dL (Neg-Trace); Specific Gravity,Urine > 1.030 (1.010-1.025); Urobilinogen,Urine Normal (Normal)
[2018-10-07 23:41] LABS: Adenovirus Not Detected (Not Detect); Bordetella Pertussis Not Detected (Not Detect); Chlamydophila pneumoniae Not Detected (Not Detect); Coronavirus 229E Not Detected (Not Detect); Coronavirus HKU1 Not Detected (Not Detect); Coronavirus NL63 Not Detected (Not Detect); Coronavirus OC43 Not Detected (Not Detect); Human Metapneumovirus Not Detected (Not Detect); Human Rhinovirus/Enterovirus Not Detected (Not Detect); Influenza A Subtype 2009 H1 Not Detected (Not Detect); Influenza A Untypeable Not Detected (Not Detect); Influenza B Not Detected (Not Detect); Mycoplasma pneumoniae Not Detected (Not Detect); Parainfluenza Virus 1 Not Detected (Not Detect); Parainfluenza Virus 2 Not Detected (Not Detect); Parainfluenza Virus 3 Not Detected (Not Detect); Parainfluenza Virus 4 Not Detected (Not Detect); Respiratory Syncytial Virus Not Detected (Not Detect)
[2018-10-08] MEDS: *HR* Heparin 5,000 UNIT/ML VIAL SQ SCH ×4 (00:30→21:24)
[2018-10-08] MEDS: 0.9 % Sodium Chloride 1,000 ML IVC SCH ×2 (03:00→08:01)
[2018-10-08 03:51] LABS: Basophils % 0.1 %; Eosinophils % 0.1 %; Hematocrit 35.4 % (35.3-44.9); Immature Granulocytes % 0.7 % (0-4); Lymphocytes # 0.8 K/mcL (0.6-4.6); Lymphocytes % 8.5 %; Mean Corpuscular HGB Conc 32.8 g/dL (31.6-35.5); Mean Corpuscular Hemoglobin 28.6 pg (28.0-33.3); Mean Corpuscular Volume 87.2 fL (83.0-100.0); Mean Platelet Volume 11.5 fL (9.4-12.4); Monocytes # 0.1 K/mcL (0.0-1.3); Monocytes % 1.3 %; Neutrophils # 8.6 K/mcL (1.6-8.9); Platelet Count 153 K/mcL (140-400); Red Blood Count 4.06 M/mcL (3.82-4.97); Red Cell Distribution Width 13.1 % (11.5-14.5); Segmented Neutrophils % 89.3 %
[2018-10-08 03:52] LABS: Hemoglobin 11.6 g/dL (11.5-15.4)
[2018-10-08 04:08] LABS: BUN/Creatinine Ratio 26 (6-26); Blood Urea Nitrogen 16 mg/dL (6-20); Calcium 8.2 mg/dL (8.6-10.3); Carbon Dioxide 21 mEq/L (23-29); Chloride 111 mEq/L (98-107); Glucose 144 mg/dL (70-105); Osmolality,Calculated 284 (280-300); Potassium 4.8 mEq/L (3.5-5.1); Sodium 135 mEq/L (136-145); eGFR For Non-African Americans > 60 (> 60)
[2018-10-08 04:37] LABS: ABG Base Excess -6 mEq/L (-2 to 3); ABG HCO3 21 mEq/L (21-27); ABG Oxygen Saturation 96 % (95-98); ABG PCO2 43 mmHg (35-45); ABG PH 7.29 pH Units (7.32-7.45); ABG PO2 92 mmHg (85-104); ABG TCO2 22 mEq/L (20-26); Blood Gas PEEP 8 cm H2O
[2018-10-08] MEDS ORDERED: MethylPREDNISolone 40 MG/ML VIAL IVP SCH (06:00)
[2018-10-08 06:17] LABS: VBG Ionized Calcium 1.08 mmol/L (1.15-1.35)
--- NOTE | 2018-10-08 06:34 | Pulmonology Consult Note ---
<Miles Brian S - Last Filed: 10/08/18 10:55> Date of Encounter: 10/08/18 Time of Encounter: 09:18 Assessment and Plan (1) Acute respiratory failure with hypoxia Current Visit: Yes Status: Acute Pt presented with oxygen saturation in the 80's, had to be put on BiPAP - anytime BiPAP is removed, O2 sat drops to low 80's, high 70's - at this time, she continues to guard her airway and control secretions CT scan from admission showed bilateral pulmonary edema +/- superimposed pneumonia CXR this morning showed no significant changes Differential includes - eosinophilic pneumonia, if acute will not have peripheral eosinophilia - pneumonitis secondary to recreational inhalation drug use - infectious CAP pneumonia - pulmonary manifestations of vasculitis, although pt denies hemoptysis - cardiogenic pulmonary edema - ARDS as defined by [place] criteria - alveolar hemorrhage Bronchoscopy performed at bedside, procedure aborted after ~4min due to hypoxia UDS (+) for cocaine, serology (-), MRSA nasal swab negative - lactate 6.3 ---> 0.9 Plan: - ECHO report pending - urgent bronchoscopy with BAL this morning at ICU bedside will check ESR, CRP cryoglobulin rheumatoid factor, ODALYS, anti-CCP IgG - blood cx pending - sputum cx pending - p ANCA, c ANCA levels sent - d/c IVF - ECHO pending- solumedrol 60mg QID - BiPAP continuously - keep NPO (2) Bilateral pneumonia Current Visit: Yes Status: Acute See as above. Qualifiers: Pneumonia type: due to unspecified organism Lung location: unspecified part of lung Qualified Code(s): J18.9 - Pneumonia, unspecified organism (3) Cocaine use Current Visit: Yes Status: Acute UDS (+) for cocaine use. Pt only inhales, denies smoking. (4) Tobacco abuse Current Visit: Yes Status: Chronic 1ppd smoker. Encourage cessation. (5) Current recreational drug use Current Visit: Yes Status: Acute Admits to inhalational lyrica and cocaine use. (6) DVT prophylaxis Current Visit: Yes Status: Acute sq heparin (7) Obesity Current Visit: No Status: Chronic BMI 35. Chronic issue. Qualifiers: Obesity type: due to excess calories Obesity classification: adult class 2 (BMI 35 - 39.9) Serious obesity comorbidity presence: unspecified whether serious comorbidity present Body mass index: BMI 35.0-35.9 Qualified Code(s): E66.09 - Other obesity due to excess calories; Z68.35 - Body mass index (BMI) 35.0-35.9, adult (8) Hepatitis C Current Visit: No Status: Chronic Chronic. Likely 2/2 IVDU. No hepatitis panel on record. Qualifiers: Viral hepatitis chronicity: unspecified Hepatic coma status: without hepatic coma Qualified Code(s): B19.20 - Unspecified viral hepatitis C without hepatic coma (9) Anxiety Current Visit: No Status: Chronic Continue home meds. (10) Bipolar depression Current Visit: No Status: Chronic Continue home meds. (11) Ankle pain Current Visit: Yes Status: Acute Initial complaint was ankle pain. XR foot and ankle negative for acute fx. Qualifiers: Chronicity: acute Laterality: unspecified laterality Qualified Code(s): M25.579 - Pain in unspecified ankle and joints of unspecified foot History of Present Illness Consult date: 10/08/18 Requesting physician: Randee Barros Reason for consult: other (ARDS) Chief complaint: my ankle hurts History of present illness: Mrs Swanson is a 33yo female with PMH of PTSD, anxiety, IVDU, hepatitis C, and polysubstance abuse. She presented to the ER on 10/07/18 for inital foot and ankle pain. She states that she had right ankle and foot pain but then was found to have an O2 saturation of 85%. Pt admitted to myself and attending that she has a hx of polysubstance abuse and snorted cocaine and lyrica. While in the ER the patient was sent for CTA of the chest which was negative for PE. CT chest showed extensive bilateral pulmonary edema +/- superimposed pneumonia. According to the ER documents, the pt told ER physician that she did have some confusion and was drifting off at work. She is also currently on suboxone. She reports no recent travel or sick contacts. Denies animals in the house such as rabbits or rodents. 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 She smokes 1ppd of cigarettes a day. She denies any current IVDU and states she hasn't shot up in quite some time. Past Med Surg Social Fam HX - Past Medical History Medical history: no medical history, other Additional medical history: Hepatitis C, HX opiate abuse Psychiatric history: anxiety, bipolar, depression, PTSD - Past Surgical History Surgical History: , other Additional surgical history: tubal - Social History Smoking Status: Former smoker Smokeless Tobacco Status: No Alcohol use: none Drug use: none Medications and Allergies Buprenorphine HCl/Naloxone HCl [Suboxone 8 mg-2 mg Sl Film] 1 film PO BID 02/28/18 [History] Venlafaxine XR (24 HR) [Effexor XR] 75 mg PO DAILY 02/28/18 [History] Venlafaxine XR (24 HR) [Effexor XR] 150 mg PO DAILY 02/28/18 [History] Acyclovir [Zovirax] 400 mg PO BID 10/07/18 [History] Aripiprazole [Abilify] 20 mg PO DAILY 10/07/18 [History] Naproxen [Naprosyn] 500 mg PO Q12H PRN 10/07/18 [History] Sulfamethoxazole/Trimeth DS [Bactrim DS] 1 each PO BID 10/07/18 [History] Allergy/AdvReac Type Severity Reaction Status Date / Time Penicillins [PCN] Allergy Rash Verified 06/14/17 09:38 All Systems: The remainder of the systems were reviewed and are negative - Constitutional Constitutional: no chills, no fever(s) - EENT Eyes: no loss of vision - Cardiovascular Cardiovascular: dyspnea, dyspnea on exertion, no chest pain, no chest pain at rest - Respiratory Respiratory: cough, dyspnea, dyspnea on exertion, no hemoptysis - Gastrointestinal Gastrointestinal: no abdominal pain, no diarrhea, no nausea, no vomiting - Genitourinary Genitourinary: no urinary frequency - Musculoskeletal Musculoskeletal: weakness - Neurological Neurological: weakness, no numbness, no tingling - Psychiatric Psychiatric: anxiety, depression - Endocrine Endocrine: fatigue - Hematologic/Lymphatic Hematologic/Lymphatic: no easy bleeding, no easy bruising Physical Examination Vital Signs: Vital Signs, Last 4 Hours Temp Pulse Resp BP Pulse Ox 10/08/18 06:00 79 20 92/67 97 10/08/18 05:00 89 19 103/68 97 10/08/18 04:24 22 98/68 95 10/08/18 04:00 97.9 F 78 18 98/68 94 10/08/18 03:00 86 19 95/68 95 General appearance: lethargic, appears uncomfortable Eyes: nonicteric ENT: oropharynx dry Effort: mildly labored, other (pt continues to guard airway and control secretions, although she desaturates quickly when off BiPAP) Auscultation: bilateral: diminished breath sounds, other (coarse breath sounds bilaterally, prolonged expiratory phase) Cardiovascular: other (tacycardia) Gastrointestinal: soft, non-tender, other (obese) Integumentary: normal Extremities: no edema Musculoskeletal: no deformities unable to assess due to mental status other (unable to assess due to mental status) Results - Laboratory Findings CBC and BMP: 10/08/18 03:27 10/08/18 03:27 ABG ABG pH 7.29 pH Units (7.32-7.45) L 10/08/18 04:33 ABG pCO2 43 mmHg (35-45) 10/08/18 04:33 ABG pO2 92 mmHg (85-104) 10/08/18 04:33 ABG O2 Saturation 96 % (95-98) 10/08/18 04:33 Abnormal lab findings: Abnormal lab results ABG pH 7.29 pH Units (7.32-7.45) L 10/08/18 04:33 ABG Base Excess -6 mEq/L (-2 to 3) L 10/08/18 04:33 VBG pCO2 37 mmHg (41-51) L 10/07/18 18:51 VBG pO2 138 mmHg (25-50) H 10/07/18 18:51 VBG HCO3 20 mEq/L (21-27) L 10/07/18 18:51 Carboxyhemoglobin 7 % (0-5) H 10/07/18 17:55 Sodium 135 mEq/L (136-145) L 10/08/18 03:27 Chloride 111 mEq/L (98-107) H 10/08/18 03:27 Carbon Dioxide 21 mEq/L (23-29) L 10/08/18 03:27 Glucose 144 mg/dL (70-105) H 10/08/18 03:27 POC Glucose 105 mg/dL (70-99) H 10/08/18 00:10 Calcium 8.2 mg/dL (8.6-10.3) L 10/08/18 03:27 Venous Ioniz Calcium 1.08 mmol/L (1.15-1.35) L 10/08/18 06:13 AST 71 Units/L (13-39) H 10/07/18 21:34 Alkaline Phosphatase 119 Units/L (34-104) H 10/07/18 21:34 B-Natriuretic Peptide 139 pg/mL (Less than 100) H 10/07/18 21:34 Serum Total Protein 6.2 g/dL (6.4-8.9) L 10/07/18 21:34 Albumin 3.1 g/dL (3.5-5.7) L 10/07/18 21:34 Albumin/Globulin Ratio 1.0 (1.1-2.2) L 10/07/18 21:34 Ur Specific [place] > 1.030 (1.010-1.025) H 10/07/18 22:26 Urine Ketones Trace mg/dL (Negative) H 10/07/18 22:26 Urine Cocaine Screen Positive ng/mL (Cutoff= 300) H 10/07/18 18:50 - Microbiology Findings Microbiology Findings: Microbiology, Last 48 Hours 10/07/18 22:26 Legionella Antigen - Final Urine,[place] Streptococcus pneumoniae Antigen (M - Final 10/07/18 19:00 Blood Culture - Preliminary Peripheral Venipuncture Culture is incubating and being continuously monitored for growth. Final report to follow. 10/07/18 19:00 Blood Culture - Preliminary Peripheral Venipuncture Culture is incubating and being continuously monitored for growth. Final report to follow. - Clinical Findings Intake & Output: Intake & Output 10/07/18 10/07/18 10/08/18 15:59 23:59 07:59 Intake Total 2500 / 2500 1100 / 1100 Output Total 0 / 0 1000 / 1000 Balance 2500 / 2500 100 / 100 Weight 98.6 kg 104.3 kg Consult Discharge Plan - Plan Referrals: NONE,PCP [Primary Care Provider] - <Shoaib Metcalf W - Last Filed: 10/08/18 11:14> Date of Encounter: 10/08/18 All Systems: The remainder of the systems were reviewed and are negative Physical Examination Vital Signs: Vital Signs, Last 4 Hours Pulse Resp BP Pulse Ox 10/08/18 10:00 77 20 103/66 98 10/08/18 09:00 97 22 100/67 97 10/08/18 08:29 94 10/08/18 08:00 96 22 105/59 97 Results - Laboratory Findings CBC and BMP: 10/08/18 03:27 10/08/18 03:27 ABG ABG pH 7.29 pH Units (7.32-7.45) L 10/08/18 08:32 ABG pCO2 45 mmHg (35-45) 10/08/18 08:32 ABG pO2 150 mmHg (85-104) H D 10/08/18 08:32 ABG O2 Saturation 99 % (95-98) H 10/08/18 08:32 Abnormal lab findings: Abnormal lab results ABG pH 7.29 pH Units (7.32-7.45) L 10/08/18 08:32 ABG pO2 150 mmHg (85-104) H D 10/08/18 08:32 ABG O2 Saturation 99 % (95-98) H 10/08/18 08:32 ABG Base Excess -5 mEq/L (-2 to 3) L 10/08/18 08:32 VBG pCO2 37 mmHg (41-51) L 10/07/18 18:51 VBG pO2 138 mmHg (25-50) H 10/07/18 18:51 VBG HCO3 20 mEq/L (21-27) L 10/07/18 18:51 Carboxyhemoglobin 7 % (0-5) H 10/07/18 17:55 Sodium 135 mEq/L (136-145) L 10/08/18 03:27 Chloride 111 mEq/L (98-107) H 10/08/18 03:27 Carbon Dioxide 21 mEq/L (23-29) L 10/08/18 03:27 Glucose 144 mg/dL (70-105) H 10/08/18 03:27 POC Glucose 105 mg/dL (70-99) H 10/08/18 00:10 Calcium 8.2 mg/dL (8.6-10.3) L 10/08/18 03:27 Venous Ioniz Calcium 1.08 mmol/L (1.15-1.35) L 10/08/18 06:13 AST 71 Units/L (13-39) H 10/07/18 21:34 Alkaline Phosphatase 119 Units/L (34-104) H 10/07/18 21:34 B-Natriuretic Peptide 139 pg/mL (Less than 100) H 10/07/18 21:34 Serum Total Protein 6.2 g/dL (6.4-8.9) L 10/07/18 21:34 Albumin 3.1 g/dL (3.5-5.7) L 10/07/18 21:34 Albumin/Globulin Ratio 1.0 (1.1-2.2) L 10/07/18 21:34 Ur Specific [place] > 1.030 (1.010-1.025) H 10/07/18 22:26 Urine Ketones Trace mg/dL (Negative) H 10/07/18 22:26 Urine Cocaine Screen Positive ng/mL (Cutoff= 300) H 10/07/18 18:50 - Microbiology Findings Microbiology Findings: Microbiology, Last 48 Hours 10/07/18 22:26 Legionella Antigen - Final Urine,[place] Streptococcus pneumoniae Antigen (M - Final 10/07/18 19:00 Blood Culture - Preliminary Peripheral Venipuncture Culture is incubating and being continuously monitored for growth. Final report to follow. 10/07/18 19:00 Blood Culture - Preliminary Peripheral Venipuncture Culture is incubating and being continuously monitored for growth. Final report to follow. - Clinical Findings Intake & Output: Intake & Output 10/07/18 10/08/18 10/08/18 23:59 07:59 15:59 Intake Total 2500 / 2500 1100 / 1100 1000 / 1000 Output Total 0 / 0 1000 / 1000 150 / 150 Balance 2500 / 2500 100 / 100 850 / 850 Weight 98.6 kg 104.3 kg - Attending Attestation I examined this patient and my medical decision-making was reviewed with the Resident Physician. I agree with the documented findings, disposition and treatment plan as described except to the extent set forth below. We independently had [id number] contact with the patient I spent 40min of Critical Care time with this patient. It involved decision making of high complexity to assess, manipulate, and support vital organ system failure and/or to prevent further life threatening deterioration of the patient's condition. The time involved in the performance of separately reportable procedures was not counted toward critical care time. Patient seen and examined at bedside Labs, radiology, chart personally reviewed. Management was reviewed during multidisciplinary critical care rounds. GEOLOGICAL SAMPLE TESTER: Patient is lethargic at times but easily arousable without focal neurological deficit this may be from recent recreational drug use Pulm: Severe hypoxemic respiratory failure I suspect this is secondary to pneumonitis from pulmonary toxicity status post drug use versus infectious pneumonia likely complicated by ARDS status post bronchoscopy today continue on noninvasive ventilatory support high risk for deterioration requiring intubation. No clear evidence of hemoptysis or alveolar hemorrhage. Continue steroids Cards: Borderline hypotensive and has been given fluid resuscitation overnight no further indication for crystalloid infusion and we will de-escalate this echocardiogram to rule out cardiogenic edema which I suspect is less likely GI: Continue to monitor Nutrition: He will for now Renal: UOP Monitored, Cont to Trend sCr and monitor Electrolytes. ID: She is being treated broadly for both hospital-acquired pathogens as well as community-acquired pathogens pending microbiological data which we will de- escalate and tailor antimicrobial therapy towards; respiratory infection panel is negative Heme/Onc: DVT prophylaxis given Endo: Glucose Monitored Integ/MSK: Skin Care per routine ICU Nursing Protocol to prevent ulcers. Lines: All lines examined without evidence of infection : Dispo: Remain in ICU for critical illness CODE: Full
[2018-10-08 08:35] LABS: ABG Base Excess -5 mEq/L (-2 to 3); ABG HCO3 22 mEq/L (21-27); ABG Oxygen Saturation 99 % (95-98); ABG PCO2 45 mmHg (35-45); ABG PH 7.29 pH Units (7.32-7.45); ABG PO2 150 mmHg (85-104); ABG TCO2 23 mEq/L (20-26); Blood Gas Modality NIV
--- NOTE | 2018-10-08 08:57 | Anesthesia Evaluation PreOp ---
Date of Encounter: 10/08/18 Time of Encounter: 09:00 - Past History Planned Operation: Bronchoscopy Cardiac History: Denies any Significant Hx Pulmonary History: Former smoker, Other (Respiratory Distress) ASSISTANT CLINICAL NURSE MANAGER History: Denies Any Significant HX Other Medical History: Hepatic (Hep C), Other (Obese PTSD Anxiety Bipolar) Alcohol Use: none Drug use: opiates Medications and Allergies Buprenorphine HCl/Naloxone HCl [Suboxone 8 mg-2 mg Sl Film] 1 film PO BID 02/28/18 [History] Venlafaxine XR (24 HR) [Effexor XR] 75 mg PO DAILY 02/28/18 [History] Venlafaxine XR (24 HR) [Effexor XR] 150 mg PO DAILY 02/28/18 [History] Acyclovir [Zovirax] 400 mg PO BID 10/07/18 [History] Aripiprazole [Abilify] 20 mg PO DAILY 10/07/18 [History] Naproxen [Naprosyn] 500 mg PO Q12H PRN 10/07/18 [History] Sulfamethoxazole/Trimeth DS [Bactrim DS] 1 each PO BID 10/07/18 [History] Allergy/AdvReac Type Severity Reaction Status Date / Time Penicillins [PCN] Allergy Rash Verified 06/14/17 09:38 - Meds/Allergy Pre-op Review Medications Reviewed: Yes Allergies Reviewed: Yes Beta Blockers on Current Med List: No Anesthesia Results - Labs 10/08/18 03:27 10/08/18 03:27 Laboratory Tests 10/07/18 10/08/18 10/08/18 18:24 03:27 03:27 Hgb 11.6 D Hct 35.4 Plt Count 153 Sodium 135 L Potassium 4.8 D BUN 16 Creatinine 0.62 Serum , Qual Negative Anesthesia Exam Vital Signs/O2 Sat/Glucose, Most Current Pulse Resp BP Pulse Ox 10/08/18 08:29 94 10/08/18 08:00 96 22 105/59 97 10/08/18 07:00 98 22 104/67 97 10/08/18 06:00 79 20 92/67 97 10/08/18 05:00 89 19 103/68 97 Height: 5'8 Weight: 229 lbs NPO (# of Hours): MN Pain Scale: 0 - HEENT Pupil (Motor): Pupils equal, EOMI Mallampati: II Teeth: Normal Oral Opening: Greater than 3 - ASSISTANT CLINICAL NURSE MANAGER LOC: Oriented ASSISTANT CLINICAL NURSE MANAGER Motor: Normal RUE, Normal LUE, Normal RLE, Normal LLE, Normal Face ASSISTANT CLINICAL NURSE MANAGER Sensory: Normal: RUE, LUE, RLE, LLE, Face - Cardiac Rhythm: Regular Murmur: None JVD: No Carotid Bruit: No - Pulmonary Breath Sounds: bilateral Clear Respiratory Effort: Symmetrical Anesthesia Assess/Plan ASA Score: 2 (Obese HepC) Level of consciousness: Cooperative, Oriented Anesthetic Plan: General Autologous Blood: No Monitoring Plan: Standard Monitors Recovery Plan: ICU (Discussed GA, agrees to proceed)
--- NOTE | 2018-10-08 09:06 | Event Note ---
Date of Encounter: 10/08/18 Time of Encounter: 09:04 I met with the patient and her in the ICU room she presented with acute hypoxic respiratory failure with evidence of the bilateral pneumonia/pneumonitis. A bronchoscopy is recommended. The procedure , risks, benefits, complications, a nd expected outcomes have been reviewed. Benefits of diagnosis, as well as risks to include bleeding, infection, pneumothorax which may require surgical intervention, and in a small population. The patient is aware that sometimes test is nondiagnostic. Discussed with patient and agrees to proceed. I also acknowledged that her risk of requiring endotracheal intubation during this procedure is relatively high given amount of noninvasive ventilation required. Both she and her expressed understanding and agree to the procedure
[2018-10-08] MEDS ORDERED: *HR* Midazolam HCl 2 MG/2 ML VIAL ONE (09:23)
[2018-10-08] MEDS ORDERED: 0.9 % Sodium Chloride 1,000 ML ONE (09:32)
--- NOTE | 2018-10-08 11:51 | Anesthesia Evaluation Post Op ---
Date of Encounter: 10/08/18 Time of Encounter: 11:00 - Vital Signs Vital Signs: Vital Signs/O2 Sat/Glucose, Most Current Pulse Resp BP Pulse Ox 10/08/18 11:00 85 20 96/79 98 10/08/18 10:00 77 20 103/66 98 10/08/18 09:00 97 22 100/67 97 10/08/18 08:29 94 10/08/18 08:00 96 22 105/59 97 - Lungs Lungs: Clear Ascult./Percussion - Airway Airway: Non-obstructed - Cardiovascular Regular Rate - Mental Status Mental Status: Alert & Oriented, Answers Appropriately - Pain Pain Scale: 0 - Nausea Vomiting Nausea Vomiting: Not Present - Hydration Hydration: NPO - Discharge PostOp Status: Transfer Patient to floor (Patient in ICU)
[2018-10-08] MEDS: methylPREDNISolone 125 MG/2 ML VIAL IVP SCH ×2 (12:09→18:18)
[2018-10-08 12:18] LABS: ABG Base Excess -6 mEq/L (-2 to 3); ABG HCO3 21 mEq/L (21-27); ABG Oxygen Saturation 98 % (95-98); ABG PCO2 45 mmHg (35-45); ABG PH 7.27 pH Units (7.32-7.45); ABG PO2 119 mmHg (85-104); ABG TCO2 22 mEq/L (20-26); Blood Gas Modality BiLevel
[2018-10-08] MEDS: Acetaminophen 325 MG TABLET PO PRN ×2 (12:51→21:24)
[2018-10-08 18:31] LABS: Source of Body Fluid RIGHT MIDDLE LOBE LU
[2018-10-08 18:36] LABS: Appearance of Body Fluid Hazy (Clear); Volume of Body Fluid 20 mL
[2018-10-09] MEDS: methylPREDNISolone 125 MG/2 ML VIAL IVP SCH ×5 (00:10→23:13)
[2018-10-09 04:44] LABS: Basophils % 0.1 %; Hematocrit 36.5 % (35.3-44.9); Hemoglobin 11.9 g/dL (11.5-15.4); Immature Granulocytes % 1.3 % (0-4); Lymphocytes # 1.3 K/mcL (0.6-4.6); Lymphocytes % 9.9 %; Mean Corpuscular HGB Conc 32.6 g/dL (31.6-35.5); Mean Platelet Volume 11.7 fL (9.4-12.4); Monocytes # 0.3 K/mcL (0.0-1.3); Monocytes % 2.4 %; Neutrophils # 11.6 K/mcL (1.6-8.9); Platelet Count 131 K/mcL (140-400); Red Cell Distribution Width 13.4 % (11.5-14.5); Segmented Neutrophils % 86.3 %
[2018-10-09] MEDS: Acetaminophen 325 MG TABLET PO PRN (04:56)
[2018-10-09] MEDS: *HR* Heparin 5,000 UNIT/ML VIAL SQ SCH ×3 (04:57→21:02)
[2018-10-09 05:02] LABS: BUN/Creatinine Ratio 44 (6-26); Blood Urea Nitrogen 18 mg/dL (6-20); Calcium 8.6 mg/dL (8.6-10.3); Carbon Dioxide 23 mEq/L (23-29); Chloride 114 mEq/L (98-107); Glucose 138 mg/dL (70-105); Osmolality,Calculated 290 (280-300); Potassium 4.4 mEq/L (3.5-5.1); Sodium 138 mEq/L (136-145); eGFR For Non-African Americans > 60 (> 60)
[2018-10-09 05:06] LABS: ABG Base Excess -2 mEq/L (-2 to 3); ABG HCO3 24 mEq/L (21-27); ABG Oxygen Saturation 99 % (95-98); ABG PCO2 45 mmHg (35-45); ABG PH 7.34 pH Units (7.32-7.45); ABG PO2 133 mmHg (85-104); ABG TCO2 26 mEq/L (20-26); Blood Gas PEEP 8 cm H2O; Blood Gas Respiration Rate 10
[2018-10-09] MEDS ORDERED: Furosemide 40 MG/4 ML VIAL IVP ONE (07:40)
--- NOTE | 2018-10-09 07:50 | Pulmonology Progress Note ---
<Ольга Styles - Last Filed: 10/09/18 11:13> Date of Encounter: 10/09/18 Time of Encounter: 07:50 Assessment and Plan (1) Acute respiratory failure with hypoxia Current Visit: Yes Status: Acute [place] 33-year-old female with past medical history significant for PTSD, anxiety, IV drug use, hepatitis C, polysubstance abuse who initially presented to the ED with foot and ankle pain. However was then found to have O2 saturation = 85%. Patient was admitted, found to have history of polysubstance abuse. Notes she has snorted cocaine and Lyrica. - CT Chest (10/07/18): Negative for pulmonary embolus. Extensive bilateral pulmonary edema and/or superimposed pneumonia - Current 1 pack per day smoker - U tox positive for cocaine; patient also notes she snorted cocaine and Lyrica - Denies recent IV drug use - Respiratory infectious panel negative; nasal MRSA screen negative - S/p Bronchoscopy yesterday (10/08/18): Terminated early due to patient hypoxia. However, impression of bilateral pneumonia. BAL was performed. - CXR (10/09/18): Improved pulmonary aeration in right lung airspace disease. No substantial change in left lung airspace disease. - O2 sats appropriately on BiPAP currently. However with removal of BiPAP, p atient desats to mid 80s. We will continue BiPAP PLAN: Patient continues to remain dependent on BiPAP. Chest x-ray suggestive of bilateral pulmonary edema with bilateral pneumonia/pneumonitis. Could be secondary to chemical pneumonitis after use of inhaled cocaine and Lyrica. Less likely infectious in origin given improving white count, and patient remains afebrile. - Continue to monitor vital signs; monitor for fevers or worsening leukocytosis - Continue to monitor O2 saturation; continue on BiPAP; wean as tolerated; however, titrated to keep O2 greater than 88%; may consider high flow nasal cannula as alternative - Given extensive pulmonary edema bilaterally, will trial Lasix 40 mg. May schedule Lasix if signs of clinical improvement - Follow up results of BAL, blood culture, sputum culture - Continue Solu-Medrol 60 mg every 6 hours - Will start Levaquin QD given prelim BAL cx with gram positive cocci (2) Bilateral pneumonia Current Visit: Yes Status: Acute Plan as above Qualifiers: Pneumonia type: due to unspecified organism Lung location: unspecified part of lung Qualified Code(s): J18.9 - Pneumonia, unspecified organism (3) Cocaine use Current Visit: Yes Status: Acute U tox positive (4) Tobacco abuse Current Visit: Yes Status: Chronic 1 pack per day smoker PLAN: - Nicotine patch when necessary (5) DVT prophylaxis Current Visit: Yes Status: Acute 5000 units subcutaneous every 8 hours Subjective Principal diagnosis: Acute hypoxic respiratory failure with bilateral pneumonitis Interval history: Patient seen and examined resting comfortably at bedside. Accompanied by significant other. O2 sats appropriate on BiPAP. Vitals hemodynamically stable. Patient has tolerated BiPAP thus far for the most part. No overnight events reported. However, bronchoscopy was attempted at bedside yesterday, and patient became hypoxic and then procedure was aborted. Currently in no acute distress. Objective PUL Vital signs: Last Vital Signs Temp 98.2 F 10/08/18 23:48 Pulse 99 10/09/18 06:00 Resp 25 10/09/18 06:00 BP 108/76 10/09/18 06:00 Pulse Ox 98 10/09/18 06:00 General appearance: no acute distress Eyes: nonicteric ENT: oropharynx moist Effort: normal Auscultation: bilateral: clear (No wheezes, rales, rhonchi) Cardiovascular: regular rate and rhythm (Sinus tachycardia) Gastrointestinal: normoactive bowel sounds, soft, non-tender, non-distended Extremities: no cyanosis, no edema normal mental status, non-focal exam, pupils equal and round, CN II-XII normal mood appropriate, affect normal Results - Laboratory Findings CBC and BMP: 10/09/18 04:31 10/09/18 04:31 ABG ABG pH 7.34 pH Units (7.32-7.45) 10/09/18 05:03 ABG pCO2 45 mmHg (35-45) 10/09/18 05:03 ABG pO2 133 mmHg (85-104) H 10/09/18 05:03 ABG O2 Saturation 99 % (95-98) H 10/09/18 05:03 Abnormal lab findings: Abnormal lab results WBC 13.5 K/mcL (4.3-11.1) H 10/09/18 04:31 Plt Count 131 K/mcL (140-400) L 10/09/18 04:31 Neutrophils # 11.6 K/mcL (1.6-8.9) H 10/09/18 04:31 ABG pO2 133 mmHg (85-104) H 10/09/18 05:03 ABG O2 Saturation 99 % (95-98) H 10/09/18 05:03 VBG pCO2 37 mmHg (41-51) L 10/07/18 18:51 VBG pO2 138 mmHg (25-50) H 10/07/18 18:51 VBG HCO3 20 mEq/L (21-27) L 10/07/18 18:51 Carboxyhemoglobin 7 % (0-5) H 10/07/18 17:55 Chloride 114 mEq/L (98-107) H 10/09/18 04:31 Creatinine 0.41 mg/dL (0.60-1.20) L 10/09/18 04:31 BUN/Creatinine Ratio 44 (6-26) H 10/09/18 04:31 Glucose 138 mg/dL (70-105) H 10/09/18 04:31 POC Glucose 121 mg/dL (70-99) H 10/08/18 23:14 Venous Ioniz Calcium 1.08 mmol/L (1.15-1.35) L 10/08/18 06:13 AST 71 Units/L (13-39) H 10/07/18 21:34 Alkaline Phosphatase 119 Units/L (34-104) H 10/07/18 21:34 B-Natriuretic Peptide 139 pg/mL (Less than 100) H 10/07/18 21:34 Serum Total Protein 6.2 g/dL (6.4-8.9) L 10/07/18 21:34 Albumin 3.1 g/dL (3.5-5.7) L 10/07/18 21:34 Albumin/Globulin Ratio 1.0 (1.1-2.2) L 10/07/18 21:34 Ur Specific [place] > 1.030 (1.010-1.025) H 10/07/18 22:26 Urine Ketones Trace mg/dL (Negative) H 10/07/18 22:26 Fluid Appearance Hazy (Clear) A 10/08/18 11:19 Urine Cocaine Screen Positive ng/mL (Cutoff= 300) H 10/07/18 18:50 - Microbiology Findings Microbiology Findings: Microbiology, Last 48 Hours 10/08/18 11:19 Respiratory Culture - Preliminary Right Middle Lobe Lung 10/08/18 08:25 Sputum Culture - Preliminary Sputum 10/07/18 22:26 Legionella Antigen - Final Urine,[place] Streptococcus pneumoniae Antigen (M - Final 10/07/18 19:00 Blood Culture - Preliminary Peripheral Venipuncture Culture is incubating and being continuously monitored for growth. Final report to follow. 10/07/18 19:00 Blood Culture - Preliminary Peripheral Venipuncture Culture is incubating and being continuously monitored for growth. Final report to follow. - Clinical Findings Intake & Output: Intake & Output 10/08/18 10/08/18 10/09/18 15:59 23:59 07:59 Intake Total 1000 / 1000 Output Total 475 / 475 325 / 325 Balance 525 / 525 -325 / -325 Weight 104.8 kg Consult Discharge Plan - Plan Referrals: NONE,PCP [Primary Care Provider] - <Tonia Chao M - Last Filed: 10/09/18 13:52> Date of Encounter: 10/09/18 Objective PUL Vital signs: Last Vital Signs Temp 98.2 F 10/09/18 08:40 Pulse 115 10/09/18 09:00 Resp 18 10/09/18 09:00 BP 111/72 10/09/18 09:00 Pulse Ox 100 10/09/18 09:00 Results - Laboratory Findings CBC and BMP: 10/09/18 04:31 10/09/18 04:31 ABG ABG pH 7.34 pH Units (7.32-7.45) 10/09/18 05:03 ABG pCO2 45 mmHg (35-45) 10/09/18 05:03 ABG pO2 133 mmHg (85-104) H 10/09/18 05:03 ABG O2 Saturation 99 % (95-98) H 10/09/18 05:03 Abnormal lab findings: Abnormal lab results WBC 13.5 K/mcL (4.3-11.1) H 10/09/18 04:31 Plt Count 131 K/mcL (140-400) L 10/09/18 04:31 Neutrophils # 11.6 K/mcL (1.6-8.9) H 10/09/18 04:31 ABG pO2 133 mmHg (85-104) H 10/09/18 05:03 ABG O2 Saturation 99 % (95-98) H 10/09/18 05:03 VBG pCO2 37 mmHg (41-51) L 10/07/18 18:51 VBG pO2 138 mmHg (25-50) H 10/07/18 18:51 VBG HCO3 20 mEq/L (21-27) L 10/07/18 18:51 Carboxyhemoglobin 7 % (0-5) H 10/07/18 17:55 Chloride 114 mEq/L (98-107) H 10/09/18 04:31 Creatinine 0.41 mg/dL (0.60-1.20) L 10/09/18 04:31 BUN/Creatinine Ratio 44 (6-26) H 10/09/18 04:31 Glucose 138 mg/dL (70-105) H 10/09/18 04:31 POC Glucose 121 mg/dL (70-99) H 10/08/18 23:14 Venous Ioniz Calcium 1.08 mmol/L (1.15-1.35) L 10/08/18 06:13 AST 71 Units/L (13-39) H 10/07/18 21:34 Alkaline Phosphatase 119 Units/L (34-104) H 10/07/18 21:34 B-Natriuretic Peptide 139 pg/mL (Less than 100) H 10/07/18 21:34 Serum Total Protein 6.2 g/dL (6.4-8.9) L 10/07/18 21:34 Albumin 3.1 g/dL (3.5-5.7) L 10/07/18 21:34 Albumin/Globulin Ratio 1.0 (1.1-2.2) L 10/07/18 21:34 Ur Specific [place] > 1.030 (1.010-1.025) H 10/07/18 22:26 Urine Ketones Trace mg/dL (Negative) H 10/07/18 22:26 Fluid Appearance Hazy (Clear) A 10/08/18 11:19 Urine Cocaine Screen Positive ng/mL (Cutoff= 300) H 10/07/18 18:50 - Microbiology Findings Microbiology Findings: Microbiology, Last 48 Hours 10/08/18 11:19 Respiratory Culture - Preliminary Right Middle Lobe Lung 10/08/18 08:25 Sputum Culture - Preliminary Sputum 10/07/18 22:26 Legionella Antigen - Final Urine,[place] Streptococcus pneumoniae Antigen (M - Final 10/07/18 19:00 Blood Culture - Preliminary Peripheral Venipuncture Culture is incubating and being continuously monitored for growth. Final report to follow. 10/07/18 19:00 Blood Culture - Preliminary Peripheral Venipuncture Culture is incubating and being continuously monitored for growth. Final report to follow. - Clinical Findings Intake & Output: Intake & Output 10/08/18 10/09/18 10/09/18 23:59 07:59 15:59 Output Total 325 / 325 350 / 350 Balance -325 / -325 -350 / -350 Weight 104.8 kg - Attending Attestation I examined this patient and my medical decision-making was reviewed with the Resident Physician. I agree with the documented findings, disposition and treatment plan as described except to the extent set forth below. Patient seen and examined. Labs, radiology, chart personally reviewed. 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 Continue empiric steroid and most likely this is not infectious in nature, however based on the BAL result on 2 Cardiovascular: stable GI: Nutrition per dietary and GI prophylaxis per routine Heme: DVT prophylaxis per routine ID: Start her Levaquin Renal; urine out put and renal funtion reviewed. Diuresis Endorcine: blood glucose is monitored Lines: all lines checked and no evidence of infections Skin: skin care to prevent pressure ulcers per nursing routine care Discussed with family at the bedside. Discussed with family and keep in ICU for next 1-2 days
[2018-10-09] MEDS: Dexmedetomidine HCl 400 MCG/100 ML MLS IVC SCH ×2 (09:10→11:55)
[2018-10-09 10:35] LABS: C-Reactive Protein 126 mg/L (Less than 10); Creatine Kinase 34 Units/L (30-223)
[2018-10-09] MEDS ORDERED: Ipratropium/Albuterol Neb 3 ML IH PRN (11:15)
[2018-10-09] MEDS: Levofloxacin 750 MG/150 ML 750 MG/150 ML BAG IVPB SCH (11:54)
[2018-10-09 14:48] LABS: C-Reactive Protein 92 mg/L (Less than 10); Creatine Kinase 27 Units/L (30-223)
[2018-10-10] MEDS: Dexmedetomidine HCl 400 MCG/100 ML MLS IVC SCH (04:16)
[2018-10-10] MEDS: methylPREDNISolone 125 MG/2 ML VIAL IVP SCH (05:19)
[2018-10-10] MEDS: *HR* Heparin 5,000 UNIT/ML VIAL SQ SCH (05:19)
[2018-10-10 05:20] LABS: Basophils % 0.3 %; Eosinophils # 0.4 K/mcL (0.0-0.6); Eosinophils % 3.6 %; Hematocrit 38.8 % (35.3-44.9); Hemoglobin 12.6 g/dL (11.5-15.4); Immature Granulocytes % 2.3 % (0-4); Lymphocytes # 1.5 K/mcL (0.6-4.6); Lymphocytes % 12.8 %; Mean Corpuscular HGB Conc 32.5 g/dL (31.6-35.5); Mean Corpuscular Hemoglobin 28.4 pg (28.0-33.3); Mean Corpuscular Volume 87.6 fL (83.0-100.0); Mean Platelet Volume 12.1 fL (9.4-12.4); Monocytes # 0.4 K/mcL (0.0-1.3); Monocytes % 3.5 %; Neutrophils # 8.9 K/mcL (1.6-8.9); Nucleated Red Blood Cells 0.3 /100 WBC (0); Platelet Count 136 K/mcL (140-400); Red Blood Count 4.43 M/mcL (3.82-4.97); Red Cell Distribution Width 13.3 % (11.5-14.5); Segmented Neutrophils % 77.5 %
[2018-10-10 06:46] LABS: BUN/Creatinine Ratio 44 (6-26); Blood Urea Nitrogen 22 mg/dL (6-20); Calcium 9.1 mg/dL (8.6-10.3); Carbon Dioxide 26 mEq/L (23-29); Chloride 108 mEq/L (98-107); Glucose 140 mg/dL (70-105); Osmolality,Calculated 298 (280-300); Potassium 4.1 mEq/L (3.5-5.1); Sodium 141 mEq/L (136-145); eGFR For Non-African Americans > 60 (> 60)
--- NOTE | 2018-10-10 07:38 | Pulmonology Progress Note ---
<Ольга Styles - Last Filed: 10/10/18 10:59> Date of Encounter: 10/10/18 Time of Encounter: 07:38 Assessment and Plan (1) Acute respiratory failure with hypoxia Current Visit: Yes Status: Acute [place] 33-year-old female with past medical history significant for PTSD, anxiety, IV drug use, hepatitis C, polysubstance abuse who initially presented to the ED with foot and ankle pain. However was then found to have O2 saturation = 85%. Patient was admitted, found to have history of polysubstance abuse. Notes she has snorted cocaine and Lyrica. - CT Chest (10/07/18): Negative for pulmonary embolus. Extensive bilateral pulmonary edema and/or superimposed pneumonia - Current 1 pack per day smoker - U tox positive for cocaine; patient also notes she snorted cocaine and Lyrica - Denies recent IV drug use - Respiratory infectious panel negative; nasal MRSA screen negative - S/p Bronchoscopy yesterday (10/08/18): Terminated early due to patient hypoxia. However, impression of bilateral pneumonia. BAL was performed. - CXR (10/09/18): Improved pulmonary aeration in right lung airspace disease. No substantial change in left lung airspace disease. - Patient was switched from BiPAP to high flow nasal cannula as of yesterday afternoon. Patient tolerated hyponasal cannula much better than BiPAP. Overnight she was transitioned to nasal cannula. O2 sats have remained appropriate on 3 L via nasal cannula. White count trending down today, patient resting comfortably PLAN: Patient has been weaned to 3 L via nasal cannula. Chest x-ray suggestive of bilateral pulmonary edema with bilateral pneumonia/pneumonitis. Could be secondary to chemical pneumonitis after use of inhaled cocaine and Lyrica. Less likely infectious in origin given improving white count, and patient remains afebrile. - Continue to monitor vital signs; monitor for fevers or worsening leukocytosis - Continue to monitor O2 saturation; wean as tolerated; however, titrated to keep O2 greater than 88% - Given extensive pulmonary edema bilaterally, will trial Lasix 40 mg. May schedule Lasix if signs of clinical improvement - Follow up results of BAL, blood culture, sputum culture - We will start by mouth prednisone 40 mg daily; continue for at least 5 days; wean as tolerated - Will start Levaquin QD given prelim BAL cx with gram positive cocci (2) Bilateral pneumonia Current Visit: Yes Status: Acute Plan as above Qualifiers: Pneumonia type: due to unspecified organism Lung location: unspecified part of lung Qualified Code(s): J18.9 - Pneumonia, unspecified organism (3) Cocaine use Current Visit: Yes Status: Acute U tox positive (4) Tobacco abuse Current Visit: Yes Status: Chronic 1 pack per day smoker PLAN: - Nicotine patch when necessary (5) DVT prophylaxis Current Visit: Yes Status: Acute 5000 units subcutaneous every 8 hours Subjective Principal diagnosis: Acute hypoxic respiratory failure with bilateral pneumo nitis Interval history: Patient seen and examined resting comfortably at bedside. Accompanied by significant other. O2 sats appropriate on only 3 L via nasal cannula currently. Patient had been transitioned from BiPAP to high flow nasal cannula as of yesterday afternoon, and overnight weaned down to nasal cannula. Vitals otherwise hemodynamically stable. Patient remains afebrile. White count trending down. Otherwise no overnight events reported. Objective PUL Vital signs: Last Vital Signs Temp 98.0 F 10/10/18 04:10 Pulse 44 10/10/18 07:00 Resp 26 10/10/18 07:00 BP 140/91 10/10/18 07:00 Pulse Ox 94 10/10/18 07:00 General appearance: no acute distress, asleep Eyes: nonicteric ENT: oropharynx moist Neck: supple Effort: normal Auscultation: bilateral: diminished breath sounds (Diminished with coarse lung sounds bilaterally; no wheezes, crackles, rales) Cardiovascular: regular rate and rhythm Gastrointestinal: normoactive bowel sounds, soft, non-tender, non-distended Integumentary: normal Extremities: no cyanosis, no edema other (Patient would not wake for exam) Results - Laboratory Findings CBC and BMP: 10/10/18 04:57 10/10/18 06:14 ABG ABG pH 7.34 pH Units (7.32-7.45) 10/09/18 05:03 ABG pCO2 45 mmHg (35-45) 10/09/18 05:03 ABG pO2 133 mmHg (85-104) H 10/09/18 05:03 ABG O2 Saturation 99 % (95-98) H 10/09/18 05:03 Abnormal lab findings: Abnormal lab results WBC 11.5 K/mcL (4.3-11.1) H 10/10/18 04:57 Plt Count 136 K/mcL (140-400) L 10/10/18 04:57 Nucleated RBCs/100 WBC 0.3 /100 WBC (0) H 10/10/18 04:57 ESR 67 mm/hr (0-15) H 10/09/18 10:53 ABG pO2 133 mmHg (85-104) H 10/09/18 05:03 ABG O2 Saturation 99 % (95-98) H 10/09/18 05:03 VBG pCO2 37 mmHg (41-51) L 10/07/18 18:51 VBG pO2 138 mmHg (25-50) H 10/07/18 18:51 VBG HCO3 20 mEq/L (21-27) L 10/07/18 18:51 Carboxyhemoglobin 7 % (0-5) H 10/07/18 17:55 Chloride 108 mEq/L (98-107) H 10/10/18 06:14 BUN 22 mg/dL (6-20) H 10/10/18 06:14 Creatinine 0.50 mg/dL (0.60-1.20) L 10/10/18 06:14 BUN/Creatinine Ratio 44 (6-26) H 10/10/18 06:14 Glucose 140 mg/dL (70-105) H 10/10/18 06:14 POC Glucose 132 mg/dL (70-99) H 10/09/18 05:52 Venous Ioniz Calcium 1.08 mmol/L (1.15-1.35) L 10/08/18 06:13 AST 71 Units/L (13-39) H 10/07/18 21:34 Alkaline Phosphatase 119 Units/L (34-104) H 10/07/18 21:34 Creatine Kinase 27 Units/L (30-223) L 10/09/18 10:53 C-Reactive Protein 92 mg/L (Less than 10) H 10/09/18 10:53 B-Natriuretic Peptide 139 pg/mL (Less than 100) H 10/07/18 21:34 Serum Total Protein 6.2 g/dL (6.4-8.9) L 10/07/18 21:34 Albumin 3.1 g/dL (3.5-5.7) L 10/07/18 21:34 Albumin/Globulin Ratio 1.0 (1.1-2.2) L 10/07/18 21:34 Ur Specific [place] > 1.030 (1.010-1.025) H 10/07/18 22:26 Urine Ketones Trace mg/dL (Negative) H 10/07/18 22:26 Fluid Appearance Hazy (Clear) A 10/08/18 11:19 Urine Cocaine Screen Positive ng/mL (Cutoff= 300) H 10/07/18 18:50 Rheumatoid Factor 52 IU/mL (Less than 14) H 10/09/18 10:53 - Microbiology Findings Microbiology Findings: Microbiology, Last 48 Hours 10/08/18 08:25 Sputum Culture - Preliminary Sputum 10/08/18 11:19 Respiratory Culture - Preliminary Right Middle Lobe Lung - Clinical Findings Intake & Output: Intake & Output 10/09/18 10/09/18 10/10/18 15:59 23:59 07:59 Intake Total 400 / 400 200 / 200 Output Total 2675 / 2675 150 / 150 350 / 350 Balance -2275 / -2275 -150 / -150 -150 / -150 Weight 103.9 kg Consult Discharge Plan - Plan Referrals: NONE,PCP [Primary Care Provider] - <Tonia Chao - Last Filed: 10/10/18 16:54> Date of Encounter: 10/10/18 Objective PUL Vital signs: Last Vital Signs Temp 97.7 F 10/10/18 16:00 Pulse 98 10/10/18 16:17 Resp 24 10/10/18 16:00 BP 123/71 10/10/18 16:00 Pulse Ox 96 10/10/18 16:00 Results - Laboratory Findings CBC and BMP: 10/10/18 04:57 10/10/18 06:14 ABG ABG pH 7.34 pH Units (7.32-7.45) 10/09/18 05:03 ABG pCO2 45 mmHg (35-45) 10/09/18 05:03 ABG pO2 133 mmHg (85-104) H 10/09/18 05:03 ABG O2 Saturation 99 % (95-98) H 10/09/18 05:03 Abnormal lab findings: Abnormal lab results WBC 11.5 K/mcL (4.3-11.1) H 10/10/18 04:57 Plt Count 136 K/mcL (140-400) L 10/10/18 04:57 Nucleated RBCs/100 WBC 0.3 /100 WBC (0) H 10/10/18 04:57 ESR 67 mm/hr (0-15) H 10/09/18 10:53 ABG pO2 133 mmHg (85-104) H 10/09/18 05:03 ABG O2 Saturation 99 % (95-98) H 10/09/18 05:03 VBG pCO2 37 mmHg (41-51) L 10/07/18 18:51 VBG pO2 138 mmHg (25-50) H 10/07/18 18:51 VBG HCO3 20 mEq/L (21-27) L 10/07/18 18:51 Carboxyhemoglobin 7 % (0-5) H 10/07/18 17:55 Chloride 108 mEq/L (98-107) H 10/10/18 06:14 BUN 22 mg/dL (6-20) H 10/10/18 06:14 Creatinine 0.50 mg/dL (0.60-1.20) L 10/10/18 06:14 BUN/Creatinine Ratio 44 (6-26) H 10/10/18 06:14 Glucose 140 mg/dL (70-105) H 10/10/18 06:14 POC Glucose 132 mg/dL (70-99) H 10/09/18 05:52 Venous Ioniz Calcium 1.08 mmol/L (1.15-1.35) L 10/08/18 06:13 AST 71 Units/L (13-39) H 10/07/18 21:34 Alkaline Phosphatase 119 Units/L (34-104) H 10/07/18 21:34 Creatine Kinase 27 Units/L (30-223) L 10/09/18 10:53 C-Reactive Protein 92 mg/L (Less than 10) H 10/09/18 10:53 B-Natriuretic Peptide 139 pg/mL (Less than 100) H 10/07/18 21:34 Serum Total Protein 6.2 g/dL (6.4-8.9) L 10/07/18 21:34 Albumin 3.1 g/dL (3.5-5.7) L 10/07/18 21:34 Albumin/Globulin Ratio 1.0 (1.1-2.2) L 10/07/18 21:34 Ur Specific [place] > 1.030 (1.010-1.025) H 10/07/18 22:26 Urine Ketones Trace mg/dL (Negative) H 10/07/18 22:26 Fluid Appearance Hazy (Clear) A 10/08/18 11:19 Urine Cocaine Screen Positive ng/mL (Cutoff= 300) H 10/07/18 18:50 Rheumatoid Factor 52 IU/mL (Less than 14) H 10/09/18 10:53 - Microbiology Findings Microbiology Findings: Microbiology, Last 48 Hours 10/08/18 08:25 Sputum Culture - Final Sputum 10/08/18 11:19 Respiratory Culture - Preliminary Right Middle Lobe Lung 10/08/18 11:19 Acid Fast Stain - Final Right Middle Lobe Lung 10/08/18 11:19 Legionella Culture - Final Right Middle Lobe Lung - Clinical Findings Intake & Output: Intake & Output 10/10/18 10/10/18 10/10/18 07:59 15:59 23:59 Intake Total 200 / 200 200 / 200 Output Total 350 / 350 150 / 150 300 / 300 Balance -150 / -150 -150 / -150 -100 / -100 Weight 103.9 kg - Attending Attestation I examined this patient and my medical decision-making was reviewed with the Resident Physician. I agree with the documented findings, disposition and treatment plan as described except to the extent set forth below. Patient seen and examined. Labs, radiology, chart personally reviewed. 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 Transition to oral prednisone. The plan and wean off FiO2 to keep SPO2 around 90%. I suspect patient could have sleep disorder breathing that can be worked up as outpatient. Patient is stable to be transferred to the floor. Cardiovascular: stable GI: Nutrition per dietary and GI prophylaxis per routine Heme: DVT prophylaxis per routine ID: Continue antibiotics and plan to de-escalation Renal; urine out put and renal funtion reviewed Endorcine: blood glucose is monitored Lines: all lines checked and no evidence of infections Skin: skin care to prevent pressure ulcers per nursing routine care
[2018-10-10] MEDS ORDERED: predniSONE 20 MG TABLET PO SCH (09:00)
[2018-10-10] MEDS: Levofloxacin 750 MG/150 ML 750 MG/150 ML BAG IVPB SCH (09:19)
[2018-10-10] MEDS ORDERED: Ipratropium/Albuterol Neb 3 ML IH PRN (10:03)
[2018-10-10] MEDS ORDERED: Naloxone 0.4 MG/ML INJ IVP PRN (10:03)
[2018-10-10] MEDS ORDERED: Acetaminophen 325 MG TABLET PO PRN (10:03)
--- NOTE | 2018-10-10 11:32 | Electrocardiograph Report ---
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
[2018-10-10] MEDS ORDERED: Ibuprofen 600 MG TABLET PO PRN (11:40)
[2018-10-10] MEDS ORDERED: *HR* Heparin 5,000 UNIT/ML VIAL SQ SCH (14:00)
[2018-10-10] MEDS ORDERED: hydrOXYzine pamoate 25 MG CAPSULE PO STA (20:13)
[2018-10-11 05:39] LABS: Basophils # 0.1 K/mcL (0.0-0.2); Basophils % 1.2 %; Eosinophils # 0.2 K/mcL (0.0-0.6); Eosinophils % 1.3 %; Hematocrit 45.7 % (35.3-44.9); Hemoglobin 14.1 g/dL (11.5-15.4); Immature Granulocytes % 4.2 % (0-4); Immature Platelets 8.3 % (1.1-6.1); Lymphocytes # 3.7 K/mcL (0.6-4.6); Lymphocytes % 31.1 %; Mean Corpuscular HGB Conc 30.9 g/dL (31.6-35.5); Mean Corpuscular Hemoglobin 28.2 pg (28.0-33.3); Mean Corpuscular Volume 91.4 fL (83.0-100.0); Mean Platelet Volume 11.7 fL (9.4-12.4); Monocytes # 0.4 K/mcL (0.0-1.3); Monocytes % 3.2 %; Red Cell Distribution Width 13.2 % (11.5-14.5)
[2018-10-11 06:11] LABS: BUN/Creatinine Ratio 38 (6-26); Blood Urea Nitrogen 19 mg/dL (6-20); Calcium 8.9 mg/dL (8.6-10.3); Carbon Dioxide 19 mEq/L (23-29); Chloride 106 mEq/L (98-107); Glucose 76 mg/dL (70-105); Magnesium 2.1 mg/dL (1.6-2.6); Osmolality,Calculated 285 (280-300); Phosphorous 2.1 mg/dL (2.7-4.5); Potassium 3.8 mEq/L (3.5-5.1); Sodium 137 mEq/L (136-145); eGFR For Non-African Americans > 60 (> 60)
[2018-10-11 06:42] LABS: Platelet Count 92 K/mcL (140-400)
[2018-10-11] MEDS: levoFLOXacin 750 MG TABLET PO SCH (08:09)
[2018-10-11] MEDS: predniSONE 20 MG TABLET PO SCH (08:09)
[2018-10-11] MEDS ORDERED: Levofloxacin 750 MG/150 ML 750 MG/150 ML BAG IVPB SCH (09:00)
--- NOTE | 2018-10-11 10:14 | Internal Med Progress Note ---
<Fiona Carrasco - Last Filed: 10/11/18 12:30> Hospitalist Progress Note - Encounter Date of Encounter: 10/11/18 - Exam Vitals: Temp Pulse Resp BP Pulse Ox 97.4 F L 91 15 126/85 97 10/11/18 11:04 10/11/18 11:04 10/11/18 11:04 10/11/18 11:04 10/11/18 11:04 - Assessment and Plan (1) Adult respiratory distress syndrome Current Visit: Yes Status: Acute (2) Tobacco abuse Current Visit: Yes Status: Chronic (3) Bilateral pneumonia Current Visit: Yes Status: Acute (4) Current recreational drug use Current Visit: Yes Status: Acute (5) DVT prophylaxis Current Visit: Yes Status: Acute (6) Severe sepsis Current Visit: Yes Status: Acute - Time Spent with Patient Total time spent is greater than 50% in coordination of care (as documented) at patient's floor/unit and/or counseling patient: Internal Medicine: Result - Labs CBC & Chem 7: 10/11/18 04:54 10/11/18 04:54 Labs: Short CBC 10/11/18 Range/Units 04:54 WBC 11.9 H (4.3-11.1) K/mcL Hgb 14.1 D (11.5-15.4) g/dL Hct 45.7 H (35.3-44.9) % Plt Count 92 L (140-400) K/mcL Neutrophils # 7.0 (1.6-8.9) K/mcL BMP 10/11/18 04:54 Sodium 137 Potassium 3.8 Chloride 106 Carbon Dioxide 19 L BUN 19 Creatinine 0.50 L Glucose 76 Calcium 8.9 - ABG Interpretation ABG results: ABG ABG pH 7.34 pH Units (7.32-7.45) 10/09/18 05:03 ABG pCO2 45 mmHg (35-45) 10/09/18 05:03 ABG pO2 133 mmHg (85-104) H 10/09/18 05:03 ABG O2 Saturation 99 % (95-98) H 10/09/18 05:03 Consult Discharge Plan - Plan Referrals: NONE,PCP [Primary Care Provider] - - Attending Attestation I examined this patient and my medical decision-making was reviewed with the Resident Physician Dr Banuelos. I agree with the documented findings, disposition and treatment plan as described except to the extent set forth below. Ms Swanson was admitted with acute hypoxic resp failure 2/2 suspected pna and pneumonitis asleep, awakes to name. denies sob on o2 nc. + cough, cannot detail sputum color. denies wheezing, cp, pressure, n/v, fevers or chills. gen- alert, awake,appears stated age eyes- pupils equal round cv- reg rate and rhythm, normal s1,s2, no murmurs appreciated, no le edema lungs- ctabl, no wheezing, rhonchi or crackles, normal resp effort on o2 nc abd- soft, non tender, non distended, + bs neuro- AAOx3, CN grossly intact Acute Hypoxic resp failure Suspected BL pna, organism unknown Suspected pneumonitis 2/2 snorting cocaine and lyrica -weaned to o2 nc, s/p bronch, pulm following, BAL cxs pending, cont levaquin + prednisone Foot pain- resolved, no physical exam or imaging findings to indicate cause, cont to monitor Thrombocytopenia- no active bleeding, off heparin vte ppx and cont scds, cont to monitor Hypophosphatemia- replete, repeat level in am further diagnoses and plan as noted by resident <Brandon Banuelos - Last Filed: 10/11/18 17:48> Hospitalist Progress Note - Encounter Date of Encounter: 10/11/18 Time of Encounter: 09:55 - Subjective Interval History: Pt seen and examined at bedside. Pt states she is in the hospital for MRSA on her legs and buttocks. Pt is aware she is in the hospital but is very slow to answer further questions. Denies any fever, chills, or chest pain. Admits to some shortness of breath but states it is better. Denies any abdominal pain, nausea, vomiting, headaches, numbness, or tingling. - Exam Vitals: Temp Pulse Resp BP Pulse Ox 98.5 F 76 14 118/84 100 10/11/18 07:55 10/11/18 07:55 10/11/18 07:55 10/11/18 07:55 10/11/18 07:55 Exam: General: lethargic female, appears stated age Head: normocephalic and atraumatic Eyes: PERRL, EOMI, sclera anicteric Neck: supple, trachea midline Lungs: grossly diminished breath sounds. non-labored breathing. no wheezes, rales, or rhonchi Heart: RRR +S1 +s2 No murmurs, clicks, or rubs GI: abdomen soft, non-tender, non-distended. normoactive bowel sounds Extremities: warm, peripheral pulses palpable. no edema, cyanosis, or calf tenderness. Neuro: Difficult to asses completely due to pt cooperation. No speech difficulty or abnormality. Skin: warm, dry, intact. no lesions noted on legs, back, or gluteal region. - Assessment and Plan (1) Chemical pneumonitis Current Visit: Yes Status: Acute Assessment and Plan: Suspected 09/09 inhaled cocaine and Lyrica Bronchoscopy on 10/08 was terminated early due to patient hypoxia, however BAL was performed BAL cytology revealed mild acute inflammation with macrophages present BAL culture was negative Continue Prednisone 40mg daily Continue supplemental O2 as needed (2) Bilateral pneumonia Current Visit: Yes Status: Acute Assessment and Plan: - CTA of the chest from 10/07 demonstrated extensive groundglass opacification throughout each lung, as well as enlarged 2.5 cm right hilar lymph node and 2 cm azygos esophageal recess noted, with concern for extensive bilateral pulmonary edema and/or superimposed pneumonia. - Pt was started on broad spectrum abx of Cefepime, Levaquin, and Vanc - Sputum culture negative - Urine strep and legionella antigens negative - Respiratory viral panel negative Abx were de-escalated to Levaquin prior to leaving the ICU Day 5 of abx total thus far - Will continue at this time Also receiving 40mg Prednisone daily for at minimum 5 days per pulmonolgy recs (3) Tobacco abuse Current Visit: Yes Status: Chronic Assessment and Plan: Smokes 1ppd Continue nicotine patch (4) Cocaine use Current Visit: Yes Status: Acute Assessment and Plan: tox screen positive Pt admits to "snorting" cocaine (5) Hypophosphatemia Current Visit: Yes Status: Acute Assessment and Plan: replace po (6) Thrombocytopenia Current Visit: Yes Status: Acute Assessment and Plan: Platelets decreased at 92 today Heparin VTE prophylaxis stopped No signs of acute bleeding at this time H&H has been stable EPCDs Continue to monitor bleeding DVT Prophylaxis: EPCDs with acute thrombocytopenia - Time Spent with Patient Total time spent is greater than 50% in coordination of care (as documented) at patient's floor/unit and/or counseling patient: Internal Medicine: Result - Labs CBC & Chem 7: 10/11/18 04:54 10/11/18 04:54 Labs: Short CBC 10/11/18 Range/Units 04:54 WBC 11.9 H (4.3-11.1) K/mcL Hgb 14.1 D (11.5-15.4) g/dL Hct 45.7 H (35.3-44.9) % Plt Count 92 L (140-400) K/mcL Neutrophils # 7.0 (1.6-8.9) K/mcL BMP 10/11/18 04:54 Sodium 137 Potassium 3.8 Chloride 106 Carbon Dioxide 19 L BUN 19 Creatinine 0.50 L Glucose 76 Calcium 8.9 - ABG Interpretation ABG results: ABG ABG pH 7.34 pH Units (7.32-7.45) 10/09/18 05:03 ABG pCO2 45 mmHg (35-45) 10/09/18 05:03 ABG pO2 133 mmHg (85-104) H 10/09/18 05:03 ABG O2 Saturation 99 % (95-98) H 10/09/18 05:03 <Fiona Carrasco - Last Filed: 10/11/18 12:30> (3) Bilateral pneumonia Qualifiers: Pneumonia type: due to unspecified organism Lung location: unspecified part of lung Qualified Code(s): J18.9 - Pneumonia, unspecified organism <Brandon Banuelos A - Last Filed: 10/11/18 17:48> (2) Bilateral pneumonia Qualifiers: Pneumonia type: due to unspecified organism Lung location: unspecified part of lung Qualified Code(s): J18.9 - Pneumonia, unspecified organism
[2018-10-11] MEDS ORDERED: *HR* Buprenorphine HCl 2 MG SUBLINGUAL TABLET SL SCH (14:00)
[2018-10-11 15:53] LABS: Influenza A PCR Body Fluid NOT DETECTED; Influenza B PCR Body Fluid NOT DETECTED; RVP Body Fluid Source BAL RML
[2018-10-11] MEDS: Acyclovir 200 MG CAPSULE PO SCH (19:50)
[2018-10-12 05:57] LABS: BUN/Creatinine Ratio 37 (6-26); Blood Urea Nitrogen 17 mg/dL (6-20); Calcium 8.8 mg/dL (8.6-10.3); Carbon Dioxide 24 mEq/L (23-29); Chloride 105 mEq/L (98-107); Glucose 83 mg/dL (70-105); Osmolality,Calculated 283 (280-300); Phosphorous 3.2 mg/dL (2.7-4.5); Potassium 3.7 mEq/L (3.5-5.1); Sodium 136 mEq/L (136-145); eGFR For Non-African Americans > 60 (> 60)
[2018-10-12 07:25] LABS: Basophils # 0.2 K/mcL (0.0-0.2); Basophils % 1.2 %; Eosinophils # 0.3 K/mcL (0.0-0.6); Eosinophils % 2.1 %; Hematocrit 42.9 % (35.3-44.9); Hemoglobin 14.7 g/dL (11.5-15.4); Immature Granulocytes % 5.1 % (0-4); Lymphocytes # 3.9 K/mcL (0.6-4.6); Lymphocytes % 29.9 %; Mean Corpuscular HGB Conc 34.3 g/dL (31.6-35.5); Mean Corpuscular Hemoglobin 29.1 pg (28.0-33.3); Mean Corpuscular Volume 84.8 fL (83.0-100.0); Mean Platelet Volume 10.5 fL (9.4-12.4); Monocytes # 0.6 K/mcL (0.0-1.3); Monocytes % 4.7 %; Neutrophils # 7.4 K/mcL (1.6-8.9); Platelet Count 171 K/mcL (140-400); Red Blood Count 5.06 M/mcL (3.82-4.97); Red Cell Distribution Width 13.2 % (11.5-14.5)
--- NOTE | 2018-10-12 08:48 | Internal Med Progress Note ---
<Fiona Carrasco - Last Filed: 10/13/18 07:42> Hospitalist Progress Note - Encounter Date of Encounter: 10/13/18 - Exam Vitals: Temp Pulse Resp BP Pulse Ox 98.6 F 58 14 113/75 97 10/12/18 08:12 10/12/18 08:12 10/12/18 08:12 10/12/18 08:12 10/12/18 08:12 Exam: gen- alert, awake,appears stated age eyes- pupils equal round cv- reg rate and rhythm, normal s1,s2, no murmurs appreciated, no le edema lungs- ctabl, no wheezing, rhonchi or crackles, normal resp effort on o2 nc neuro- AAOx3 - Assessment and Plan (1) Cocaine use Status: Acute (2) Tobacco abuse Status: Chronic (3) Bilateral pneumonia Status: Acute (4) Chemical pneumonitis Status: Acute (5) Hypophosphatemia Status: Acute (6) Thrombocytopenia Status: Acute - Time Spent with Patient Total time spent is greater than 50% in coordination of care (as documented) at patient's floor/unit and/or counseling patient: Internal Medicine: Result - Labs CBC & Chem 7: 10/12/18 07:08 10/12/18 05:07 Labs: BMP 10/12/18 05:07 Sodium 136 Potassium 3.7 Chloride 105 Carbon Dioxide 24 BUN 17 Creatinine 0.46 L Glucose 83 Calcium 8.8 - ABG Interpretation ABG results: ABG ABG pH 7.34 pH Units (7.32-7.45) 10/09/18 05:03 ABG pCO2 45 mmHg (35-45) 10/09/18 05:03 ABG pO2 133 mmHg (85-104) H 10/09/18 05:03 ABG O2 Saturation 99 % (95-98) H 10/09/18 05:03 Consult Discharge Plan - Plan Referrals: NONE,PCP [Primary Care Provider] - - Attending Attestation I examined this patient and my medical decision-making was reviewed with the Resident Physician Dr Alberto. I agree with the documented findings, disposition and treatment plan as described except to the extent set forth below. Ms Swanson was admitted with acute hypoxic resp failure 2/2 suspected pna and pneumonitis awake, alert and at bedside. Feeling better today. no somlonece. hisband agrees she seems improved today. + cough, + sputum, color uk, no wheezing or sob on o2 nc. denies fevers or chills. discussed effect of snorting meds on her lungs and she will not be doing that anymore and agrees. asking about her suboxone. no s/s of opiate withdrawal. still has foot pain top of right foot. had been working out a lot and worries has stress fracture. no other injury to foot. mild edema, no wounds. gen- alert, awake,appears stated age eyes- pupils equal round cv- reg rate and rhythm, normal s1,s2, no murmurs appreciated, no le edema lungs- ctabl, no wheezing, rhonchi or crackles, normal resp effort on o2 nc neuro- AAOx3 Acute Hypoxic resp failure Suspected BL pna, organism unknown Suspected pneumonitis 2/2 snorting cocaine and lyrica -weaned to o2 nc, s/p bronch, pulm following, BAL cxs pending, cont levaquin + prednisone Foot pain- resolved, had XR ankle that was neg, now that she is more awake she can localize to dorsum of foot, check foot XR, cont to monitor Thrombocytopenia- no active bleeding, off heparin vte ppx and cont scds, cont to monitor Hypophosphatemia-resolved I would not re initiate suboxone given she came in with cocaine in her system which would likely be a violation of her agreement and she has been without med for days and cont close monitoring of her resp status further diagnoses and plan as noted by resident <Angelica Alberto - Last Filed: 10/13/18 08:37> Hospitalist Progress Note - Encounter Date of Encounter: 10/13/18 Time of Encounter: 13:10 - Subjective Interval History: Seen and examined at bedside this afternoon. She is seated in bedside chair in no acute distress. Reports no overnight events. Denies fevers, chills, sweats, chest pain, shortness of breath. Admits to cough. - Exam Vitals: Temp Pulse Resp BP Pulse Ox 98.6 F 58 14 113/75 97 10/12/18 08:12 10/12/18 08:12 10/12/18 08:12 10/12/18 08:12 10/12/18 08:12 Exam: General: vital signs noted, no acute distress, non-toxic appearance, AAO x3 Head: normocephalic, atraumatic Eyes: EOMI, PERRL, sclera anicteric ENT: moist mucous membranes Neck: supple Cardio: RRR; no murmurs, gallops, rubs; normal S1/S2; no edema Pulm: CTAB, no wheezes/rhonchi, no respiratory distress Abd: soft, nontender Neuro: CN II-XII grossly intact; no focal deficits, moves all extremities spontaneously Ext: no lower extremity edema, no gross deformities, R foot not erythematous or bruised Skin: warm, dry, intact - Assessment and Plan (1) Bilateral pneumonia Status: Acute Assessment and Plan: - CTA of the chest from 10/07 demonstrated extensive groundglass opacification throughout each lung, as well as enlarged 2.5 cm right hilar lymph node and 2 cm azygos esophageal recess noted, with concern for extensive bilateral pulmonary edema and/or superimposed pneumonia. - Pt was started on broad spectrum abx and de-escalated to levaquin after transfer out of icu - Sputum culture negative - Urine strep and legionella antigens negative - Respiratory viral panel negative Will continue abx Continue 40mg Prednisone daily (2) Chemical pneumonitis Status: Acute Assessment and Plan: Likely d/t inhaled cocaine and Lyrica Bronchoscopy on 10/08 stopped early because patient became hypoxic, BAL was able to be performed BAL cytology revealed mild acute inflammation with macrophages present BAL culture was negative Lung clear on exam Continue Prednisone 40mg daily Continue supplemental O2 as needed (3) Cocaine use Status: Acute Assessment and Plan: Tox screen positive for cocaine Pt admits to use (4) Thrombocytopenia Status: Resolved Assessment and Plan: Resolved Platelets 171 today H&H has been stable Will continue to monitor for bleeding (5) Tobacco abuse Status: Chronic Assessment and Plan: Smokes 1ppd, will continue nicotine patch (6) Foot pain, right Status: Acute Assessment and Plan: Pain in top of right foot and arch since admission, patient concerned for stress fracture Will order right foot XR - Time Spent with Patient Total time spent is greater than 50% in coordination of care (as documented) at patient's floor/unit and/or counseling patient: Internal Medicine: Result - Labs CBC & Chem 7: 10/12/18 07:08 10/12/18 05:07 Labs: BMP 10/12/18 05:07 Sodium 136 Potassium 3.7 Chloride 105 Carbon Dioxide 24 BUN 17 Creatinine 0.46 L Glucose 83 Calcium 8.8 - ABG Interpretation ABG results: ABG ABG pH 7.34 pH Units (7.32-7.45) 10/09/18 05:03 ABG pCO2 45 mmHg (35-45) 10/09/18 05:03 ABG pO2 133 mmHg (85-104) H 10/09/18 05:03 ABG O2 Saturation 99 % (95-98) H 10/09/18 05:03 <Fiona Carrasco - Last Filed: 10/13/18 07:42> (3) Bilateral pneumonia Qualifiers: Pneumonia type: due to unspecified organism Lung location: unspecified part of lung Qualified Code(s): J18.9 - Pneumonia, unspecified organism <Angelica Alberto - Last Filed: 10/13/18 08:37> (1) Bilateral pneumonia Qualifiers: Pneumonia type: due to unspecified organism Lung location: unspecified part of lung Qualified Code(s): J18.9 - Pneumonia, unspecified organism
[2018-10-12] MEDS ORDERED: Venlafaxine XR (24 HR) 150 MG CAP.ER.24H PO SCH (09:00)
[2018-10-12] MEDS ORDERED: ARIPiprazole 10 MG TABLET PO SCH (09:00)
[2018-10-12] MEDS ORDERED: Venlafaxine XR (24 HR) 75 MG CAP.ER.24H PO SCH (09:00)
[2018-10-12] MEDS: Acyclovir 200 MG CAPSULE PO SCH (09:03)
[2018-10-12] MEDS: predniSONE 20 MG TABLET PO SCH (09:03)
[2018-10-12] MEDS: levoFLOXacin 750 MG TABLET PO SCH (09:03)
[2018-10-12 09:37] LABS: HSV Source BAL RML
[2018-10-12 11:36] LABS: Platelet Estimate Normal (Normal)
[2018-10-12 15:15] LABS: RSV PCR Body Fluid NOT DETECTED
[2018-10-12 15:27] LABS: ANA IgG by ELISA NONE DETECTED (None Detected)
[2018-10-13 07:39] VITALS: BP 151/89
--- NOTE | 2018-10-13 07:52 | Discharge Summary ---
- NOTES TO OUTPATIENT PROVIDER Notes to Outpatient Provider: Ms Swanson was admitted with acute hypoxic resp failure 2/2 suspected pna and pneumonitis suspected 2/2 snorting cocaine and lyrica. She was treated in the ICU then transferred to the floor where she was being treated with Levaquin and steroids and supplemental O2 NC. On 10/12/18 she signed herself out of hospital AMA. Orders not resulted at time of discharge: Pending orders 10/08/18 09:49 MPO/PR3 (ANCA) Antibodies Routine 10/08/18 10:53 Cryoglobulin Routine 10/08/18 11:19 AFB Culture, Respiratory [TB] Routine AFB Smear [TB] Routine Fungal Culture [MYC] Routine Legionella Culture [RM] Routine Date of Encounter: 10/12/18 Time of Encounter: 09:00 - Discharge Diagnosis (1) Cocaine use Priority: Secondary Status: Acute (2) Tobacco abuse Priority: Secondary Status: Chronic (3) Bilateral pneumonia Priority: Secondary Status: Acute Qualifiers: Pneumonia type: due to unspecified organism Lung location: unspecified part of lung Qualified Code(s): J18.9 - Pneumonia, unspecified organism (4) Chemical pneumonitis Priority: Secondary Status: Acute (5) Hypophosphatemia Priority: Secondary Status: Resolved (6) Thrombocytopenia Priority: Secondary Status: Acute (7) Acute respiratory failure with hypoxia Priority: Primary Status: Resolved Hospital course: Ms. Swanson is a 33 year old female with history of anxiety, bipolar disorder, PTSD, depression, IV drug abuse on suboxone and hepatitis C. She presented to the ED due to right ankle/foot pain (imaging negative for acute findings); however, she was found to have a pulse oximetry of 85%. She admitted to snorting cocaine and lyrica. She was admitted to the ICU with Severe sepsis, ARDS, pneumonitits from drug inhalation and CT showing bl pna of unknown organism. She required urgent bronchoscopy while in ICU. She was treated with broad spectrum abx and steroids as well as continuous bipap. Her resp status improved and she was transferred to the floor, on O2 NC, with oral abx. On 10/12/18 she finally was more awake and interactive and we began to wean O2 nc. Continued treatment with nebs, steroids and abx. She began requesting suboxone which given her recent drug use, hypoxia, resp decline and somnolence was held. She then signed herself out of the hospital AMA that evening despite education by staff that untreated pna and pneumonitis could lead to . At time of leaving AMA she had pending cxs from bronchoscopy. - Time Spent with Patient Total time spent providing and/or coordinating discharge services: Time spent: Less than 30 minutes (SHE LEFT AMA) - Discharge Medications Prescriptions: No Action Venlafaxine XR (24 HR) [Effexor XR] 150 mg PO DAILY Venlafaxine XR (24 HR) [Effexor XR] 75 mg PO DAILY Buprenorphine HCl/Naloxone HCl [Suboxone 8 mg-2 mg Sl Film] 1 film PO BID Acyclovir [Zovirax] 400 mg PO BID Aripiprazole [Abilify] 20 mg PO DAILY Naproxen [Naprosyn] 500 mg PO Q12H PRN PRN Reason: Pain Sulfamethoxazole/Trimeth DS [Bactrim DS] 1 each PO BID Home Medications: Buprenorphine HCl/Naloxone HCl [Suboxone 8 mg-2 mg Sl Film] 1 film PO BID 02/28/18 [History] Venlafaxine XR (24 HR) [Effexor XR] 75 mg PO DAILY 02/28/18 [History] Venlafaxine XR (24 HR) [Effexor XR] 150 mg PO DAILY 02/28/18 [History] Acyclovir [Zovirax] 400 mg PO BID 10/07/18 [History] Aripiprazole [Abilify] 20 mg PO DAILY 10/07/18 [History] Naproxen [Naprosyn] 500 mg PO Q12H PRN 10/07/18 [History] Sulfamethoxazole/Trimeth DS [Bactrim DS] 1 each PO BID 10/07/18 [History] Allergies/Adverse Reactions: Allergy/AdvReac Type Severity Reaction Status Date / Time Penicillins [PCN] Allergy Rash Verified 06/14/17 09:38 Date of admission: 10/07/18 19:48 Primary care physician: PCP NONE Consults: 10/08/18 03:02 Consult to Pulmonology [CONS] Routine Consulting Provider: [facility] [place] Reason for Consult: ARDS Call Completed: Yes 10/09/18 09:00 Consult to Nurse Navigator [CONS] Routine Comment: pneumonia Discharging clinician: Angelica Alberto - Constitutional Vitals: Temp Pulse Resp BP Pulse Ox 97.5 F L 71 18 151/89 94 10/13/18 07:31 10/13/18 07:31 10/13/18 07:31 10/13/18 07:31 10/13/18 07:31 Exam: EXAM FROM 10/12/18 MORNING gen- alert, awake,appears stated age eyes- pupils equal round cv- reg rate and rhythm, normal s1,s2, no murmurs appreciated, no le edema lungs- ctabl, no wheezing, rhonchi or crackles, normal resp effort on o2 nc abd- soft, non tender, non distended, + bs neuro- AAOx3, CN grossly intact - Patient Status Disposition: Left Against Medical Advice Condition: Fair Overall status at discharge: patient is progressing back to baseline - Discharge Instructions Follow Up With: NONE,PCP [Primary Care Provider] -
[2018-10-13 11:40] LABS: Myeloperoxidase Ab 1 AU/mL (0-19); Serine Protease-3 Antibody 0 AU/mL (0-19)
== END 2018-10-12 17:41 | disposition left against medical advice (07) | DRG 720 ==
LOC: EMEROOARM 17:42 → ICNU 19:48 → SUATTDRO 19:48 → ICNU 20:30 → 3ANU 10-11 00:39
PROVIDERS: ADMIT Internal Medicine; ATTEND Internal Medicine